=== PATIENT | female | born 1970 | race American Indian/Alaskan Native ===

== ENCOUNTER 2016-06-28 09:31 | Day surgery (SDC) | payer OTHER ==
[2016-06-25 11:37] LABS: Basophils % (Auto) 0.2 % (0.0-1.8); Eosinophils % (Auto) 0.5 % (0.0-4.3); Hematocrit 32.9 % (30.3-42.9); Hemoglobin 10.4 gm/dl (10.1-14.3); Mean Corpuscular HGB Conc 32 % (30-34); Mean Corpuscular Volume 76 fl (79-97); Platelet Count 325 K/mm3 (140-440); Red Blood Count 4.34 M/mm3 (3.65-5.03); Red Cell Distribution Width 17.3 % (13.2-15.2); White Blood Count 9.5 K/mm3 (4.5-11.0)
[2016-06-25 11:38] LABS: Mean Corpuscular Hemoglobin 24 pg (28-32)
--- NOTE | 2016-06-25 11:38 | Anesthesia Consultation ---
Anesthesia Consult and Med Hx Date of service: 06/25/16 - Airway Anesthetic Teeth Evaluation: Good ROM Head & Neck: Adequate Mental/Hyoid Distance: Adequate Mallampati Class: Class I Intubation Access Assessment: Good - Pulmonary Exam CTA: Yes - Cardiac Exam Cardiac Exam: RRR - Pre-Operative Health Status ASA Pre-Surgery Classification: ASA2 Proposed Anesthetic Plan: General - Pulmonary Hx Smoking: Yes (marijuanna daily) Hx Asthma: No - Cardiovascular System Hx Hypertension: Yes (x 10 yrs) - Central Nervous System Hx Seizures: Yes (EEG normal on 06/10/16, pass out, last one on 06/03/16) Hx Psychiatric Problems: No - Endocrine Hx Renal Disease: No Hx Liver Disease: No Hx Non-Insulin Dependent Diabetes: No - Hematic Hx Anemia: Yes - Other Systems Hx Alcohol Use: Yes (occas) Hx Substance Use: Yes (marijuana daily) Hx Cancer: No - Additional Comments Anesthesia Medical History Comments: NAC
[2016-06-25 11:57] LABS: Anion Gap 13 mmol/L; BUN/Creatinine Ratio 13.33; Blood Urea Nitrogen 8 mg/dL (7-17); Calcium 9.2 mg/dL (8.4-10.2); Carbon Dioxide 28 mmol/L (22-30); Chloride 100.5 mmol/L (98-107); Glucose 85 mg/dL (65-100); Sodium 139 mmol/L (137-145)
[2016-06-25 12:32] LABS: Potassium 2.9 mmol/L (3.6-5.0)
--- NOTE | 2016-06-27 16:00 | History and Physical Report ---
History of Present Illness History of present illness: 46 YOBF p[address] Shaq Stone with menometrorhagia. Patient's work up included a sonohysterogram which showed a lesion c/w a submucosal myoma. Patient has failed medical therapy to control her irregular menses and desires definite treatment and preservation of her fertility PATIENT Surgery Was Canceled Due To Hypokalemia. We'll Reschedule Once This Problem Is Resolved Past History Past Medical History: anemia, hypertension, other (s/p blood transfusion 1994) Past Surgical History: , Other (BTL, right arm lipoma removal) Family history: hypertension Medications and Allergies Allergies Allergy/AdvReac Type Severity Reaction Status Date / Time No Known Allergies Allergy Verified 06/24/16 12:22 Home Medications Medication Instructions Recorded Confirmed Last Taken Type Ferrous Sulfate [Ferrous Sulfate] 650 mg PO DAILY 06/24/16 06/28/16 06/27/16 History Olmesartan/Amlodipin/Hcthiazid 1 each PO QDAY 06/24/16 06/28/16 06/28/16 09:16 History [Tribenzor 20-5-12.5 mg] levETIRAcetam [Keppra TAB] 1,000 mg PO DAILY 06/24/16 06/28/16 06/27/16 23:30 History Active Meds: Active Medications Famotidine (Pepcid) 20 mg PO PREOP NR Stop: 06/28/16 23:29 Lactated Ringer's (Lactated Ringers) 1,000 mls @ 100 mls/hr IV DIRECT PRATIK Midazolam HCl (Versed) 2 mg IV PREOP NR Stop: 06/28/16 23:59 Review of Systems Breasts: deferred Cardiovascular: no chest pain, no orthopnea, no palpitations, no rapid/ irregular heart beat Respiratory: no cough, no congestion Gastrointestinal: abdominal pain Genitourinary Female: abnormal vaginal bleeding Menstruation: period heavy, menses variable Exam - Constitutional Vitals: Temp Pulse Resp BP Pulse Ox 98.3 F 76 14 140/86 06/25/16 11:00 06/25/16 11:00 06/25/16 11:00 06/25/16 11:00 General appearance: Present: no acute distress - Neck Neck: Present: supple - Respiratory Respiratory effort: normal - Cardiovascular Rhythm: regular - Extremities Extremities: pulses symmetrical, No edema - Abdominal General gastrointestinal: Present: soft, non-tender Female genitourinary: Present: normal - Rectal Rectal Exam: deferred - Integumentary Integumentary: Present: clear, warm, dry - Musculoskeletal Musculoskeletal: strength equal bilaterally - Psychiatric Psychiatric: appropriate mood/affect, intact judgment & insight - Neurologic Neurologic: moves all extremities Results - Labs CBC & Chem 7: 06/25/16 11:05 06/28/16 09:00 Assessment and Plan - Patient Problems (1) Submucous leiomyoma of uterus Current Visit: Yes Status: Acute Plan to address problem: Discussed risk of surgery including infection, bleeding and risk of perforating her uterus. Questions answered. Patient understands and desires to proceed (2) Anemia Current Visit: Yes Status: Acute Qualifiers: Anemia type: A Iron deficiency anemia type: chronic blood loss Vitamin B12 deficiency anemia type: V Folate deficiency anemia type: F Bone marrow failure anemia type: B Hemolytic anemia type: H Other causes of anemia: O Qualified Code(s): D50.0 - Iron deficiency anemia secondary to blood loss ( chronic) (3) Hypertension Current Visit: Yes Status: Acute Qualifiers: Hypertension type: essential hypertension Qualified Code(s): I10 - Essential (primary) hypertension
[~2016-06-28 09:31] MED LIST: LACTATED RINGERS 1,000 ML IV SCH; NACL BACTERIOSTATIC INFILTRATI ONE; PEPCID PO NR; VERSED IV NR
[2016-06-28 09:58] VITALS: BP 144/99
== END 2016-06-28 09:32 | disposition home or self-care (01) ==
LOC: OR 09:31
PROVIDERS: ATTEND Obstetrics & Gynecology
DX: D25.0 Submucous leiomyoma of uterus (principal); Z53.8 Procedure and treatment not carried out for other reasons; D64.9 Anemia, unspecified; I10 Essential (primary) hypertension; F12.90 Cannabis use, unspecified, uncomplicated; Z98.51 Tubal ligation status; Z98.890 Other specified postprocedural states; Z79.899 Other long term (current) drug therapy; Z72.89 Other problems related to lifestyle; Z82.49 Family history of ischemic heart disease and other diseases of the circulatory system
CPT/HCPCS: 36415; 80048; 84132; 84703; 85025; 86850; 86870; 86900; 86901; 86902; 86922; J7120; J2250

== ENCOUNTER 2016-07-26 13:51 | Emergency (ER) | payer OTHER ==
[2016-07-26] MEDS ORDERED: KEPPRA 1,000 MG/NS 0.75% 100ML 1,000 MG/100 ML BAG IV ONE (14:04)
[2016-07-26 14:21] VITALS: BP 121/75
[2016-07-26] MEDS ORDERED: KEPPRA 1,000 MG in NACL 0.9% 100 ML IV SCH (15:00)
--- NOTE | 2016-07-26 15:01 | Emergency Department Report ---
ED Seizure HPI - General Chief Complaint: Seizure Stated Complaint: SEIZURES Time Seen by Provider: 07/26/16 14:52 Source: patient, family, EMS, RN notes reviewed Mode of arrival: Stretcher Limitations: No Limitations - History of Present Illness Initial Comments: 46-year-old female presents to the emergency department via EMS after 3 witnessed seizures today. Patient has a history of seizure disorder and states she has been compliant with her Keppra. Before today, her last seizure was approximately 2 months ago. Patient states that she has been feeling well over the past several days. Today, family describes 3 generalized, tonic-clonic seizures. There are no other complaints. MD Complaint: seizure -: Gradual, This morning Description of Episode: tonic-clonic movement, post-event confusion Witnessed:: Yes Trauma: No Seizure History: known seizure disorder, compliant with medication Place: home Possible Precipitating Event: none Associated Symptoms: denies other symptoms Treatments Prior to Arrival: none - Related Data Home Medications Medication Instructions Recorded Confirmed Last Taken Ferrous Sulfate [Ferrous Sulfate] 650 mg PO DAILY 06/24/16 07/26/16 06/27/16 Olmesartan/Amlodipin/Hcthiazid 1 each PO QDAY 06/24/16 07/26/16 06/28/16 09:16 [Tribenzor 20-5-12.5 mg] Previous Rx's Medication Instructions Recorded Last Taken Type levETIRAcetam [Keppra TAB] 1,000 mg PO QAM #30 tablet 07/26/16 Unknown Rx levETIRAcetam [Keppra TAB] 500 mg PO QPM #30 tablet 07/26/16 Unknown Rx Allergies Allergy/AdvReac Type Severity Reaction Status Date / Time No Known Allergies Allergy Verified 06/24/16 12:22 ED Review of Systems ROS: Stated complaint: SEIZURES Other details as noted in HPI Comment: All other systems reviewed and negative Neurological: other (seizure) ED Past Medical Hx - Past Medical History Previous Medical History?: Yes Hx Hypertension: Yes (x 10 yrs) Hx Liver Disease: No Hx Renal Disease: No Hx Headaches / Migraines: Yes Hx Seizures: Yes Hx Asthma: No Hx HIV: No Additional medical history: anemia - Surgical History Past Surgical History?: Yes Additional Surgical History: ARM SURGERY. TUBAL ligation - Family History Family history: no significant - Social History Smoking Status: Never Smoker Substance Use Type: Marijuana - Medications Home Medications: Home Medications Medication Instructions Recorded Confirmed Last Taken Type Ferrous Sulfate [Ferrous Sulfate] 650 mg PO DAILY 06/24/16 07/26/16 06/27/16 History Olmesartan/Amlodipin/Hcthiazid 1 each PO QDAY 06/24/16 07/26/16 06/28/16 09:16 History [Tribenzor 20-5-12.5 mg] levETIRAcetam [Keppra TAB] 1,000 mg PO QAM #30 tablet 07/26/16 Unknown Rx levETIRAcetam [Keppra TAB] 500 mg PO QPM #30 tablet 07/26/16 Unknown Rx ED Physical Exam - General Limitations: No Limitations General appearance: alert, in no apparent distress - Head Head exam: Present: atraumatic, normocephalic - Eye Eye exam: Present: normal appearance, PERRL, EOMI - ENT ENT exam: Present: normal exam, normal orophraynx, mucous membranes moist - Neck Neck exam: Present: normal inspection, full ROM. Absent: tenderness - Respiratory Respiratory exam: Present: normal lung sounds bilaterally. Absent: respiratory distress - Cardiovascular Cardiovascular Exam: Present: regular rate, normal rhythm, normal heart sounds - GI/Abdominal GI/Abdominal exam: Present: soft, normal bowel sounds. Absent: distended, tenderness - Extremities Exam Extremities exam: Present: normal inspection, full ROM. Absent: tenderness - Back Exam Back exam: Present: normal inspection, full ROM. Absent: tenderness - Neurological Exam Neurological exam: Present: alert, oriented X3. Absent: motor sensory deficit - Skin Skin exam: Present: warm, dry, intact ED Course Vital Signs 07/26/16 07/26/16 14:15 14:16 Temperature 98.0 F Pulse Rate 87 Respiratory 16 16 Rate Blood Pressure 121/75 [Right] O2 Sat by Pulse 99 99 Oximetry ED Medical Decision Making - Lab Data Result diagrams: 07/26/16 14:37 07/26/16 14:37 - EKG Data -: EKG Interpreted by Me EKG shows normal: sinus rhythm, axis, intervals, QRS complexes, ST-T waves Rate: normal - EKG Data When compared to previous EKG there are: previous EKG unavailable Interpretation: normal EKG - Medical Decision Making Laboratory results reviewed and discussed with the patient and family. Elevated white blood cell count is likely secondary to demarginalization from repeated seizures. Patient has been administered IV Keppra in the emergency department and there has been no further seizure activity. Patient will be discharged home at this time to follow up with her neurologist. I am increasing her Keppra dose from 1000 mg daily to 1500 mg daily. - Differential Diagnosis seizure disorder, noncompliance, occult infection, electrolyte abnormality Critical care attestation.: If time is entered above; I have spent that time in minutes in the direct care of this critically ill patient, excluding procedure time. ED Disposition Clinical Impression: Seizure disorder Disposition: DISCHARGED TO HOME OR SELFCARE Is pt being admited?: No Condition: Stable Instructions: Recurrent Seizures Adult (ED) Prescriptions: levETIRAcetam [Keppra TAB] 500 mg PO QPM #30 tablet levETIRAcetam [Keppra TAB] 1,000 mg PO QAM #30 tablet Referrals: PRIMARY CARE, [Primary Care Provider] - 3-5 Days Time of Disposition: 16:36
[2016-07-26 15:26] LABS: Anion Gap 20 mmol/L; Blood Urea Nitrogen 7 mg/dL (7-17); Calcium 8.9 mg/dL (8.4-10.2); Carbon Dioxide 20 mmol/L (22-30); Chloride 101.8 mmol/L (98-107); Glucose 105 mg/dL (65-100); Potassium 3.5 mmol/L (3.6-5.0); Sodium 138 mmol/L (137-145)
[2016-07-26 15:33] LABS: Hematocrit 29.3 % (30.3-42.9); Hemoglobin 8.9 gm/dl (10.1-14.3); Mean Corpuscular HGB Conc 30 % (30-34); Mean Corpuscular Volume 77 fl (79-97); Platelet Count 377 K/mm3 (140-440); Red Blood Count 3.81 M/mm3 (3.65-5.03); Red Cell Distribution Width 17.3 % (13.2-15.2)
[2016-07-26 15:36] LABS: White Blood Count 20.8 K/mm3 (4.5-11.0)
[2016-07-26 15:37] LABS: Mean Corpuscular Hemoglobin 23 pg (28-32)
[2016-07-26] MEDS ORDERED: TYLENOL ONE (15:45)
[2016-07-26] MEDS ORDERED: TYLENOL PO ONE (15:49)
[2016-07-26 16:08] LABS: Bacteria,Urine 1+ /HPF (Negative); Bilirubin,Urine NEG (Negative); Blood,Urine MOD (Negative); Ketones,Urine NEG (Negative); Leukocyte Esterase,Urine NEG (Negative); Mucus,Urine FEW /HPF; Nitrite,Urine NEG (Negative); Urobilinogen,Urine < 2.0 mg/dL (<2.0)
[2016-07-26 17:11] LABS: Anisocytosis 1+; Basophils % (Manual) 0 % (0.0-1.8); Blastocytes % (Manual) 0 %; Eosinophils % (Manual) 0 % (0.0-4.3); Microcytosis 1+
[2016-07-26 17:12] LABS: Hypochromasia 1+; Ovalocytes Few
[2016-07-26 17:13] LABS: Diff Status Complete; Giant Platelets Few; Platelet Estimate Consistent w Auto; Poikilocytosis Few
== END 2016-07-26 17:20 | disposition home or self-care (01) ==
LOC: ED 13:51
DX: G40.909 Epilepsy, unspecified, not intractable, without status epilepticus (principal); I10 Essential (primary) hypertension; G43.909 Migraine, unspecified, not intractable, without status migrainosus; F12.10 Cannabis abuse, uncomplicated
CPT/HCPCS: 36415; 80048; 81001; 85007; 85025; 93005; 93010; 96365; 99284; J1953

== ENCOUNTER 2016-08-30 23:42 | Emergency (ER) | payer SELFPAY ==
[2016-08-31] MEDS ORDERED: KEPPRA 1,000 MG/NS 0.75% 100ML 1,000 MG/100 ML BAG IV ONE (00:38)
--- NOTE | 2016-08-31 00:41 | Emergency Department Report ---
HPI - General Time Seen by Provider: 08/31/16 00:26 - HPI HPI: This is a 46-year-old -[place] female presents to the emergency department by EMS from home after a friend went to check on her and did not get any response. She found the patient down, with blood to the tongue and mouth. Patient did become more awake and alert and thinks that she had a seizure prior to EMS arrival. She says that this is how she typically feels after a seizure. The patient last had a seizure on July 23 but had 3 seizures on that day and came to be seen at [facility]. The patient has been having some feelings of fever, runny nose and sinus drainage for the past 3 days prior to this event. Her neurologist is Dr. Vieyra but she is looking to find a different one in [facility]. She does not currently have a primary care doctor. She has been compliant with her Keppra 1000 mg daily. No recent travel or sick contacts at home. ED Past Medical Hx - Past Medical History Hx Hypertension: Yes (x 10 yrs) Hx Liver Disease: No Hx Renal Disease: No Hx Headaches / Migraines: Yes Hx Seizures: Yes Hx Asthma: No Hx HIV: No Additional medical history: anemia - Surgical History Additional Surgical History: ARM SURGERY. TUBAL ligation - Social History Smoking Status: Never Smoker Substance Use Type: Marijuana - Medications Home Medications: Home Medications Medication Instructions Recorded Confirmed Last Taken Type Ferrous Sulfate [Ferrous Sulfate] 650 mg PO DAILY 06/24/16 07/26/16 06/27/16 History levETIRAcetam [Keppra TAB] 1,000 mg PO QAM #30 tablet 07/26/16 Unknown Rx levETIRAcetam [Keppra TAB] 500 mg PO QPM #30 tablet 07/26/16 Unknown Rx Olmesartan/Amlodipin/Hcthiazid 1 each PO QDAY #30 tablet 08/31/16 Unknown Rx [Tribenzor 20-5-12.5 mg] Sulfamethoxazole/Trimethoprim 1 each PO BID #14 tablet 08/31/16 Unknown Rx [Bactrim DS TAB] ED Review of Systems ROS: Stated complaint: SEIZURE, NAUSEA AND VOMITING Other details as noted in HPI Comment: All other systems reviewed and negative Constitutional: fever. denies: diaphoresis Eyes: denies: eye pain, eye discharge, vision change ENT: other (tongue and inner lip laceration). denies: ear pain, throat pain Respiratory: denies: cough, shortness of breath, wheezing Cardiovascular: denies: chest pain, palpitations Gastrointestinal: denies: abdominal pain, nausea, diarrhea Genitourinary: denies: urgency, dysuria, discharge Musculoskeletal: denies: back pain, joint swelling, arthralgia Skin: denies: rash, lesions Neurological: other (seizure). denies: headache Physical Exam - Physical Exam Physical Exam: GENERAL: The patient is well-developed well-nourished. HEENT: Normocephalic. Atraumatic. Extraocular motions are intact. Patient has moist mucous membranes. Pupils equal reactive to light bilaterally. No nystagmus. The patient has a small laceration to the left side of the tongue but there is no significant gap. There is also a small laceration to the midline inside of the upper lip but it does not go through to the outside and there is no current bleeding. Otherwise the oropharynx is clear. NECK: Supple. Trachea is midline. CHEST/LUNGS: Clear to auscultation. There is no respiratory distress noted. HEART/CARDIOVASCULAR: Regular. There is no tachycardia. There is no gallop rub or murmur. ABDOMEN: Abdomen is soft, nontender. Patient has normal bowel sounds. There is no abdominal distention. SKIN: Skin is warm and dry. NEURO: The patient is awake, alert, and oriented. The patient is cooperative. The patient has no focal neurologic deficits. The patient has normal speech. Cranial nerves II through XII grossly intact. MUSCULOSKELETAL: There is no tenderness or deformity. There is no limitation range of motion. There is no evidence of acute injury. ED Medical Decision Making - Lab Data Result diagrams: 08/31/16 00:48 08/31/16 00:48 - Radiology Data Radiology results: image reviewed interpreted by me: Chest x-ray did not show any acute process. Heart is normal shape and size. No effusions. No pneumothorax. No signs of pneumonia seen. - Medical Decision Making 46-year-old female presents to the emergency department after having a seizure at home. It was unwitnessed but the patient was found on the ground in a sort of postictal state but then became more awake and alert and says this is her previous seizures have presented. Since being in the emergency Department there has been no further seizure-like activity. She did bite her lip and tongue causing small lacerations but did not want them closed with suture. Patient's labs show some hypokalemia with potassium of 2.9 that was replaced with potassium chloride. She had some signs of hypothyroidism. Otherwise there is no Elevation in blood alcohol level and urine drug screen only positive for marijuana. Since the patient has a history of seizures and only had one seizure recently, no CT head was done at this time. She was reevaluated multiple times over multiple hours has remained stable. She will be placed on some antibiotics for the lacerations to the tongue and lip and was given a refill of her blood pressure medication. She is going to find a new neurologist and [facility] and was given some referrals for primary care. She will return to the ER with any worsening of her symptoms or any acute distress. - Differential Diagnosis epilepsy, substance abuse, hypoglycemia, hypothyroidism Critical Care Time: No Critical care attestation.: If time is entered above; I have spent that time in minutes in the direct care of this critically ill patient, excluding procedure time. ED Disposition Clinical Impression: Seizure, Hypokalemia Laceration of tongue Qualifiers: Encounter type: initial encounter Qualified Code(s): S01.512A - Laceration without foreign body of oral cavity, initial encounter Disposition: DC- TO HOME OR SELFCARE Is pt being admited?: No Condition: Stable Instructions: Hypokalemia (ED), Epilepsy (ED) Additional Instructions: Please follow-up with a primary care physician in the next few days if possible. You should find a different neurologist if you are unhappy with the one that you currently have but it is recommended that he do follow up with a neurologist regarding your seizures. Return to the emergency department with any worsening of your symptoms or any acute distress. I have started you on some antibiotics due to the laceration of the tongue and inside of the lip. Try to stay away from foods that are spicy, extra salty or have small seeds or pieces of food that could get caught in the lacerations. Prescriptions: Olmesartan/Amlodipin/Hcthiazid [Tribenzor 20-5-12.5 mg] 1 each PO QDAY #30 tablet Sulfamethoxazole/Trimethoprim [Bactrim DS TAB] 1 each PO BID #14 tablet Referrals: PRIMARY CARE, [Primary Care Provider] - 3-5 Days JOSE NIETO MD [Staff Physician] - 3-5 Days [facility] [place] [Outside] - 3-5 Days [facility] [Outside] - 3-5 Days [facility] [Outside] - 3-5 Days Time of Disposition: 03:04
[2016-08-31 00:54] LABS: Urine Drugs of Abuse Note Disclamer
[2016-08-31 01:06] LABS: Bilirubin,Urine NEG (Negative); Blood,Urine SM (Negative); Ketones,Urine NEG (Negative); Leukocyte Esterase,Urine TR (Negative); Mucus,Urine FEW /HPF; Nitrite,Urine NEG (Negative); Urobilinogen,Urine < 2.0 mg/dL (<2.0)
[2016-08-31 01:18] LABS: Basophils % (Auto) 0.2 % (0.0-1.8); Hemoglobin 8.9 gm/dl (10.1-14.3); Mean Corpuscular HGB Conc 31 % (30-34); Mean Corpuscular Hemoglobin 22 pg (28-32); Mean Corpuscular Volume 71 fl (79-97); Platelet Count 366 K/mm3 (140-440); Red Blood Count 4.09 M/mm3 (3.65-5.03); Red Cell Distribution Width 18.6 % (13.2-15.2); White Blood Count 17.1 K/mm3 (4.5-11.0)
[2016-08-31 01:28] LABS: Alanine Aminotransferase 16 units/L (7-56); Albumin 4.1 g/dL (3.9-5); Alkaline Phosphatase 65 units/L (35-129); Anion Gap 18 mmol/L; BUN/Creatinine Ratio 11.42; Blood Urea Nitrogen 8 mg/dL (7-17); Carbon Dioxide 27 mmol/L (22-30); Chloride 99.2 mmol/L (98-107); Glucose 97 mg/dL (65-100); Sodium 141 mmol/L (137-145); Total Protein 8.4 g/dL (6.3-8.2)
[2016-08-31 01:46] LABS: Potassium 2.9 mmol/L (3.6-5.0)
[2016-08-31] MEDS ORDERED: K-DUR PO ONE (01:48)
[2016-08-31] MEDS ORDERED: MORPHINE IV ONE (02:07)
[2016-08-31] MEDS ORDERED: MORPHINE ONE (02:08)
[2016-08-31 03:31] VITALS: BP 128/84
--- NOTE | 2016-08-31 10:40 | XRay Report ---
AP CHEST :08/31/16 01:18:00 CLINICAL: Cough. COMPARISON:None. FINDINGS: Normal heart and pulmonary vasculature. Aortic tortuosity. The lungs are normally expanded and clear. The bones and soft tissues are normal. IMPRESSION: No acute cardiopulmonary process.
== END 2016-08-31 03:31 | disposition home or self-care (01) ==
LOC: ED 23:42
DX: S01.512A Laceration without foreign body of oral cavity, initial encounter (principal); R56.9 Unspecified convulsions; E87.6 Hypokalemia; I10 Essential (primary) hypertension; G43.909 Migraine, unspecified, not intractable, without status migrainosus; D64.9 Anemia, unspecified; F12.90 Cannabis use, unspecified, uncomplicated; X58.XXXA Exposure to other specified factors, initial encounter; Y93.9 Activity, unspecified; Y99.9 Unspecified external cause status; Y92.9 Unspecified place or not applicable
CPT/HCPCS: 36415; 71010; 80053; 80307; 81001; 81025; 84443; 84484; 85025; 93005; 93010; 96365; 96375; 99285; G0480; J1953; J2270; 80320

== ENCOUNTER 2016-12-12 17:50 | Emergency (ER) | payer SELFPAY ==
[2016-12-12] MEDS ORDERED: NACL 0.9% 1000 ML 1,000 ML IV ONE (18:12)
[2016-12-12] MEDS ORDERED: MORPHINE IV ONE ×2 (18:12→22:59)
[2016-12-12] MEDS ORDERED: ZOFRAN IV ONE (18:12)
--- NOTE | 2016-12-12 20:31 | Cat Scan Report ---
FINAL REPORT PROCEDURE: CT head without contrast. TECHNIQUE: Computerized tomography of the head was performed without contrast material. HISTORY: Headache. COMPARISON: CT head 01/19/2016. FINDINGS: The ventricles are normal in size. The mera matter and white matter appear normal. There are no mass lesions. There is no intracranial hemorrhage. There are no signs of acute infarction. The calvarium appears intact. The mastoid air cells and visualized paranasal sinuses are clear. IMPRESSION: Normal study.
[2016-12-12 20:41] LABS: Basophils % (Auto) 0.1 % (0.0-1.8); Mean Corpuscular HGB Conc 29 % (30-34); Platelet Count 333 K/mm3 (140-440); Red Blood Count 4.57 M/mm3 (3.65-5.03); Red Cell Distribution Width 19.8 % (13.2-15.2); White Blood Count 16.1 K/mm3 (4.5-11.0)
[2016-12-12 20:50] LABS: Alanine Aminotransferase 18 units/L (7-56); Albumin 3.9 g/dL (3.9-5); Albumin/Globulin Ratio 0.9 %; Alkaline Phosphatase 70 units/L (35-129); Anion Gap 16 mmol/L; BUN/Creatinine Ratio 11.66; Blood Urea Nitrogen 7 mg/dL (7-17); Calcium 8.8 mg/dL (8.4-10.2); Carbon Dioxide 23 mmol/L (22-30); Chloride 101.3 mmol/L (98-107); Glucose 98 mg/dL (65-100); Potassium 3.1 mmol/L (3.6-5.0); Sodium 137 mmol/L (137-145); Total Protein 8.1 g/dL (6.3-8.2)
[2016-12-12 20:57] LABS: Hemoglobin 9.3 gm/dl (10.1-14.3)
[2016-12-12 20:58] LABS: Hematocrit 31.7 % (30.3-42.9); Mean Corpuscular Hemoglobin 20 pg (28-32); Mean Corpuscular Volume 69 fl (79-97)
[2016-12-12] MEDS ORDERED: REGLAN IV ONE (21:19)
[2016-12-12] MEDS ORDERED: BENADRYL IV ONE (21:19)
[2016-12-12] MEDS ORDERED: TORADOL IV ONE (21:19)
--- NOTE | 2016-12-12 22:44 | Emergency Department Report ---
HPI - General Chief Complaint: Seizure Time Seen by Provider: 12/12/16 19:36 - HPI HPI: The patient is a 46-year-old female presents for evaluation of seizure. The patient reports experiencing a seizure while lying at home in bed. She has a history of epilepsy. She also reports on and off moderate in severity, aching in quality headache, for the past one week, exacerbated with head position changes. The patient denies fever, head injury, neck pain, neck stiffness, vision or hearing changes, smell or taste changes, paresthesias, facial drooping , slurred speech, urine or bowel incontinence or retention, or other focal neurological deficit. ED Past Medical Hx - Past Medical History Hx Hypertension: Yes (x 10 yrs) Hx Liver Disease: No Hx Renal Disease: No Hx Headaches / Migraines: Yes Hx Seizures: Yes Hx Asthma: No Hx HIV: No Additional medical history: anemia - Surgical History Additional Surgical History: ARM SURGERY. TUBAL ligation - Social History Smoking Status: Never Smoker Substance Use Type: None - Medications Home Medications: Home Medications Medication Instructions Recorded Confirmed Last Taken Type Ferrous Sulfate [Ferrous Sulfate] 650 mg PO DAILY 06/24/16 07/26/16 06/27/16 History levETIRAcetam [Keppra TAB] 1,000 mg PO QAM #30 tablet 07/26/16 Unknown Rx Olmesartan/Amlodipin/Hcthiazid 1 each PO QDAY #30 tablet 08/31/16 Unknown Rx [Tribenzor 20-5-12.5 mg] Sulfamethoxazole/Trimethoprim 1 each PO BID #14 tablet 08/31/16 Unknown Rx [Bactrim DS TAB] Butalb/Acetaminophen/Caffeine 1 - 2 cap PO Q6HR PRN #20 cap 12/12/16 Unknown Rx [Fioricet 50-300-40 mg CAP] levETIRAcetam [Keppra TAB] 500 mg PO QDAY #30 tablet 12/12/16 Unknown Rx ED Review of Systems ROS: Stated complaint: SEIZURE Other details as noted in HPI Constitutional: denies: fever ENT: denies: throat or neck pain Respiratory: denies: cough, shortness of breath Cardiovascular: denies: chest pain Endocrine: denies unexplained weight loss or gain Gastrointestinal: denies: abdominal pain, nausea Genitourinary: denies: dysuria Musculoskeletal: denies: leg swelling Skin: denies: rash Neurological: reports headache and seizure Hematological/Lymphatic: denies: easy bleeding or easy bruising Psych: denies sadness or hopelessness Physical Exam - Physical Exam Vital Signs: Vital Signs 12/12/16 12/12/16 12/12/16 13:55 14:00 14:15 Temperature Pulse Rate Respiratory Rate Blood Pressure 155/117 155/117 162/105 O2 Sat by Pulse 100 100 99 Oximetry 12/12/16 12/12/16 12/12/16 14:30 14:46 15:00 Temperature Pulse Rate Respiratory Rate Blood Pressure 162/105 167/104 147/97 O2 Sat by Pulse 100 100 100 Oximetry 12/12/16 12/12/16 12/12/16 15:16 15:30 15:46 Temperature Pulse Rate Respiratory Rate Blood Pressure 155/105 159/103 173/103 O2 Sat by Pulse 100 100 91 Oximetry 12/12/16 12/12/16 12/12/16 16:00 16:15 16:31 Temperature Pulse Rate Respiratory Rate Blood Pressure 194/98 138/113 153/108 O2 Sat by Pulse 100 100 100 Oximetry 12/12/16 12/12/16 12/12/16 16:45 17:00 17:16 Temperature Pulse Rate Respiratory Rate Blood Pressure 160/105 160/105 157/104 O2 Sat by Pulse 97 100 100 Oximetry 12/12/16 12/12/16 12/12/16 17:53 17:57 18:03 Temperature 98.1 F Pulse Rate 106 H 105 H Respiratory 18 16 Rate Blood Pressure 164/101 160/105 160/105 O2 Sat by Pulse 98 99 98 Oximetry 12/12/16 12/12/16 12/12/16 18:15 18:30 18:33 Temperature Pulse Rate 105 H 103 H Respiratory 21 15 14 Rate Blood Pressure 138/81 145/97 O2 Sat by Pulse 98 Oximetry 12/12/16 18:45 Temperature Pulse Rate 105 H Respiratory 16 Rate Blood Pressure 147/91 O2 Sat by Pulse 92 Oximetry Physical Exam: General: well-nourished, well-developed, no acute distress Head: Normocephalic, atraumatic Eyes: normal sclera, PERRL, EOM intact ENT: Mucous membranes are pale and dry Neck: No neck stiffness, no cervical adenopathy Respiratory: Breath sounds equal bilaterally, no wheezing, rales, or rhonchi Cardio: S1 and S2 present, no murmurs, rubs, gallops, capillary refill is delayed Abdomen: Normoactive bowel sounds, soft abdomen, no rigidity, no guarding or rebound tenderness Musc: No pitting edema Skin: No rash Neuro: alert oriented x4, normal cognition, speech normal, no facial drooping, no uvula or tongue deviation on protrusion, no deficit with rotation of neck or shoulder shrug, no obvious gross motor deficit in the upper or lower extremities with flexion or extension at the shoulder, elbow, wrist, hip, knee, or ankle bilaterally, no obvious gross sensation deficit to crude touch or 2 pt discrimination, 2+ symmetric reflexes on DTR testing, no coordination deficit with [id number]-[id number] or [id number]-[id number] testing, romberg negative Psych: Normal affect ED Course Vital Signs 12/12/16 12/12/16 12/12/16 13:55 14:00 14:15 Temperature Pulse Rate Respiratory Rate Blood Pressure 155/117 155/117 162/105 O2 Sat by Pulse 100 100 99 Oximetry 12/12/16 12/12/16 12/12/16 14:30 14:46 15:00 Temperature Pulse Rate Respiratory Rate Blood Pressure 162/105 167/104 147/97 O2 Sat by Pulse 100 100 100 Oximetry 12/12/16 12/12/16 12/12/16 15:16 15:30 15:46 Temperature Pulse Rate Respiratory Rate Blood Pressure 155/105 159/103 173/103 O2 Sat by Pulse 100 100 91 Oximetry 12/12/16 12/12/16 12/12/16 16:00 16:15 16:31 Temperature Pulse Rate Respiratory Rate Blood Pressure 194/98 138/113 153/108 O2 Sat by Pulse 100 100 100 Oximetry 12/12/16 12/12/16 12/12/16 16:45 17:00 17:16 Temperature Pulse Rate Respiratory Rate Blood Pressure 160/105 160/105 157/104 O2 Sat by Pulse 97 100 100 Oximetry 12/12/16 12/12/16 12/12/16 17:53 17:57 18:03 Temperature 98.1 F Pulse Rate 106 H 105 H Respiratory 18 16 Rate Blood Pressure 164/101 160/105 160/105 O2 Sat by Pulse 98 99 98 Oximetry 12/12/16 12/12/16 12/12/16 18:15 18:30 18:33 Temperature Pulse Rate 105 H 103 H Respiratory 21 15 14 Rate Blood Pressure 138/81 145/97 O2 Sat by Pulse 98 Oximetry 12/12/16 18:45 Temperature Pulse Rate 105 H Respiratory 16 Rate Blood Pressure 147/91 O2 Sat by Pulse 92 Oximetry ED Medical Decision Making - Lab Data Result diagrams: 12/12/16 20:11 12/12/16 20:11 - Medical Decision Making The patient was seen and examined by myself. The patient is placed on a zoo veterinarian and continuous pulse ox. On initial evaluation, the patient was found to be in no distress with no findings on examination concerning for acute intracranial disease process. CT scan the head is negative for acute intracranial disease process. IV access is established and the patient is given 1 L normal saline fluid bolus for treatment of dehydration, IV Reglan, Benadryl , and IV Toradol for headache. The patient was reevaluated and reported that their symptoms were markedly improved. The patient is stable for discharge with outpatient follow-up. The patient is given follow-up and return instructions. The patient expressed understanding and agreed with the plan. The patient is discharged in stable condition. Critical care attestation.: If time is entered above; I have spent that time in minutes in the direct care of this critically ill patient, excluding procedure time. ED Disposition Clinical Impression: Seizure disorder, Dehydration, Hypertensive urgency, Acute non intractable tension-type headache Disposition: DC-01 TO HOME OR SELFCARE Is pt being admited?: No Does the pt Need Aspirin: No Condition: Stable Instructions: Epilepsy (ED), Acute Headache (ED), Hypertension (ED) Prescriptions: Butalb/Acetaminophen/Caffeine [Fioricet 50-300-40 mg CAP] 1 - 2 cap PO Q6HR PRN #20 cap PRN Reason: Headache levETIRAcetam [Keppra TAB] 500 mg PO QDAY #30 tablet Referrals: PRIMARY CARE, [Primary Care Provider] - 3-5 Days Time of Disposition: 22:41
[2016-12-12 23:03] VITALS: BP 139/91
== END 2016-12-12 22:45 | disposition home or self-care (01) ==
LOC: ED 17:50
DX: G40.909 Epilepsy, unspecified, not intractable, without status epilepticus (principal); E86.0 Dehydration; I16.0 Hypertensive urgency; G44.209 Tension-type headache, unspecified, not intractable; I10 Essential (primary) hypertension; G43.909 Migraine, unspecified, not intractable, without status migrainosus
CPT/HCPCS: 36415; 70450; 80053; 83735; 84703; 85025; 96361; 96374; 96375; 99283; J1200; J1885; J2270; J2405; J2765; J7030

== ENCOUNTER 2017-12-01 14:19 | Emergency (ER) | payer SELFPAY ==
[2017-12-01] MEDS ORDERED: MOTRIN PO ONE (18:13)
--- NOTE | 2017-12-01 19:07 | XRay Report ---
FINAL REPORT PROCEDURE: XR ANKLE 3+V LT TECHNIQUE: Left ankle, three views HISTORY: left ankle pain COMPARISON: No prior studies are available for comparison. FINDINGS: No acute fracture or dislocation. No focal osseous lesions. There is lateral soft tissue swelling. IMPRESSION: Lateral soft tissue swelling. No acute fracture or dislocation
--- NOTE | 2017-12-01 19:59 | Emergency Department Report ---
ED Lower Extremity HPI - General Chief Complaint: Extremity Injury, Lower Stated Complaint: LEFT ANKLE SWOLLEN Time Seen by Provider: 12/01/17 18:06 Source: patient Mode of arrival: Ambulatory Limitations: No Limitations - History of Present Illness Initial Comments: This is a 47-year-old female nontoxic, well nourished in appearance, no acute signs of distress presents to the ED with c/o of left ankle pain 1 week. Patient denies any injuries or trauma. Patient denies any numbness, tingling, fever, chills, nausea, vomiting, chest pain, shortness of breath, headache, stiff neck. Patient denies any joint swelling or joint redness. Patient denies decreased range of motion. Patient stated has decreased gait due to pain. Patient denies any allergies or significant past medical history. MD Complaint: ankle injury -: week(s) (1) Injury: Ankle: Left Severity: mild Severity scale (0 -10): 8 Improves With: immobilization Worsens With: palpation Associated Symptoms: swelling, able to partially bear weight, ambulatory. denies: snap/pop sensation, numbness, tingling, unable to bear weight - Related Data Home Medications Medication Instructions Recorded Confirmed Last Taken Ferrous Sulfate 650 mg PO DAILY 06/24/16 07/26/16 06/27/16 Previous Rx's Medication Instructions Recorded Last Taken Type levETIRAcetam [Keppra TAB] 1,000 mg PO QAM #30 tablet 07/26/16 Unknown Rx Olmesartan/Amlodipin/Hcthiazid 1 each PO QDAY #30 tablet 08/31/16 Unknown Rx [Tribenzor 20-5-12.5 mg] Sulfamethoxazole/Trimethoprim 1 each PO BID #14 tablet 08/31/16 Unknown Rx [Bactrim DS TAB] Butalb/Acetaminophen/Caffeine 1 - 2 cap PO Q6HR PRN #20 cap 12/12/16 Unknown Rx [Fioricet 50-300-40 mg CAP] levETIRAcetam [Keppra TAB] 500 mg PO QDAY #30 tablet 12/12/16 Unknown Rx Ibuprofen [Motrin] 600 mg PO Q8H PRN #30 tablet 12/01/17 Unknown Rx Allergies Allergy/AdvReac Type Severity Reaction Status Date / Time No Known Allergies Allergy Verified 06/24/16 12:22 ED Review of Systems ROS: Stated complaint: LEFT ANKLE SWOLLEN Other details as noted in HPI Constitutional: denies: chills, fever Eyes: denies: eye pain, eye discharge, vision change ENT: denies: ear pain, throat pain Respiratory: denies: cough, shortness of breath, wheezing Cardiovascular: denies: chest pain, palpitations Endocrine: no symptoms reported Gastrointestinal: denies: abdominal pain, nausea, diarrhea Genitourinary: denies: urgency, dysuria, discharge Musculoskeletal: denies: back pain, joint swelling, arthralgia Skin: denies: rash, lesions Neurological: denies: headache, weakness, paresthesias Psychiatric: denies: anxiety, depression Hematological/Lymphatic: denies: easy bleeding, easy bruising ED Past Medical Hx - Past Medical History Hx Hypertension: Yes (x 10 yrs) Hx Liver Disease: No Hx Renal Disease: No Hx Headaches / Migraines: Yes Hx Seizures: Yes Hx Asthma: No Hx HIV: No Additional medical history: anemia - Surgical History Additional Surgical History: ARM SURGERY. TUBAL ligation - Social History Smoking Status: Never Smoker Substance Use Type: Marijuana - Medications Home Medications: Home Medications Medication Instructions Recorded Confirmed Last Taken Type Ferrous Sulfate 650 mg PO DAILY 06/24/16 07/26/16 06/27/16 History levETIRAcetam [Keppra TAB] 1,000 mg PO QAM #30 tablet 07/26/16 Unknown Rx Olmesartan/Amlodipin/Hcthiazid 1 each PO QDAY #30 tablet 08/31/16 Unknown Rx [Tribenzor 20-5-12.5 mg] Sulfamethoxazole/Trimethoprim 1 each PO BID #14 tablet 08/31/16 Unknown Rx [Bactrim DS TAB] Butalb/Acetaminophen/Caffeine 1 - 2 cap PO Q6HR PRN #20 cap 12/12/16 Unknown Rx [Fioricet 50-300-40 mg CAP] levETIRAcetam [Keppra TAB] 500 mg PO QDAY #30 tablet 12/12/16 Unknown Rx Ibuprofen [Motrin] 600 mg PO Q8H PRN #30 tablet 12/01/17 Unknown Rx ED Physical Exam - General Limitations: No Limitations General appearance: alert, in no apparent distress - Head Head exam: Present: atraumatic, normocephalic - Eye Eye exam: Present: normal appearance - ENT ENT exam: Present: mucous membranes moist - Neck Neck exam: Present: normal inspection - Respiratory Respiratory exam: Present: normal lung sounds bilaterally. Absent: respiratory distress - Cardiovascular Cardiovascular Exam: Present: regular rate, normal rhythm. Absent: systolic murmur, diastolic murmur, rubs, gallop - GI/Abdominal GI/Abdominal exam: Present: soft, normal bowel sounds - Extremities Exam Extremities exam: Present: normal inspection, full ROM, tenderness, normal capillary refill. Absent: joint swelling - Expanded Lower Extremity Exam Left Hip exam: Present: normal inspection, full ROM. Absent: tenderness, swelling Upper Leg exam: Present: normal inspection, full ROM. Absent: tenderness, swelling Knee exam: Present: normal inspection, full ROM. Absent: tenderness, swelling Lower Leg exam: Present: normal inspection, full ROM. Absent: tenderness, swelling Ankle exam: Present: normal inspection, full ROM, tenderness, swelling. Absent : abrasion, laceration, ecchymosis, deformity, crepidus, dislocation, erythema, anterior draw sign Foot/Toe exam: Present: normal inspection, full ROM. Absent: tenderness, swelling Neuro vascular tendon exam: Present: no vascular compromise. Absent: pulse deficit, abnormal cap refill, motor deficit, sensory deficit, tendon deficit, extremity cold to touch, pallor, abnormal 2-point discrimination, decreased fine /light touch, foot drop, peroneal nerve deficit, significant pain with passive ROM of distal joint Gait: Positive: observed and limited by pain - Back Exam Back exam: Present: normal inspection, full ROM - Neurological Exam Neurological exam: Present: alert, oriented X3, normal gait - Psychiatric Psychiatric exam: Present: normal affect, normal mood - Skin Skin exam: Present: warm, dry, intact, normal color. Absent: rash ED Course Vital Signs 12/01/17 15:17 Temperature 98.7 F Pulse Rate 99 H Respiratory 18 Rate Blood Pressure 142/92 O2 Sat by Pulse 99 Oximetry - Reevaluation(s) Reevaluation #1: 12/01/17 20:00 Patient is speaking in full sentences with no signs of distress noted. ED Lower Extremity MDM - Medical Decision Making This is a 47-year-old female that presents with left ankle stain. Patient is stable and was examined by me. I referred patient to an orthopedic doctor for further evaluation for possible MRI. X-ray has been obtained and dictated by the radiologist. Patient is notified of the x-ray report with noted by the patient. Patient does have normal gait with no tenderness and no joint swelling. No ecchymosis. no joint redness or swelling. Not warm to touch. No signs of cellulites present. Patient received ankle stirrup for pain comfort. Patient was instructed to RICE therapy. Patient received Motrin for pain. Patient is discharged with Motrin. At time of discharge, the patient does not seem toxic or ill in appearance. No acute signs of distress noted. Patient agrees to discharge treatment plan of care. No further questions noted by the patient. Critical care attestation.: If time is entered above; I have spent that time in minutes in the direct care of this critically ill patient, excluding procedure time. ED Disposition Clinical Impression: Left ankle strain Qualifiers: Encounter type: initial encounter Qualified Code(s): S96.912A - Strain of unspecified muscle and tendon at ankle and foot level, left foot, initial encounter Disposition: TO HOME OR SELFCARE Is pt being admited?: No Does the pt Need Aspirin: No Condition: Stable Instructions: Ankle Stirrup Splint (ED), Ankle Exercises (GEN), RICE Therapy ( ED) Additional Instructions: Follow-up with a orthopedic doctor in 3-5 days or if symptoms worsen and continue return to emergency room as soon as possible. Prescriptions: Ibuprofen [Motrin] 600 mg PO Q8H PRN #30 tablet PRN Reason: Pain Referrals: PRIMARY MD RAFA [Primary Care Provider] - 3-5 Days MADELAINE KATE MD [Staff Physician] - 3-5 Days [facility] [Outside] - 3-5 Days Forms: Work/School Release Form(ED)
[2017-12-01 21:13] VITALS: BP 140/95
== END 2017-12-01 20:35 | disposition home or self-care (01) ==
LOC: ED 14:19
DX: S96.912A Strain of unspecified muscle and tendon at ankle and foot level, left foot, initial encounter (principal); I10 Essential (primary) hypertension; G43.909 Migraine, unspecified, not intractable, without status migrainosus; F12.10 Cannabis abuse, uncomplicated; Z86.2 Personal history of diseases of the blood and blood-forming organs and certain disorders involving the immune mechanism; Z98.51 Tubal ligation status; X58.XXXA Exposure to other specified factors, initial encounter; Y93.89 Activity, other specified; Y99.8 Other external cause status; Y92.89 Other specified places as the place of occurrence of the external cause

== ENCOUNTER 2017-12-25 09:22 | Day surgery (SDC) | payer OTHER ==
[2017-12-24 11:58] LABS: Basophils # (Auto) 0.1 K/mm3 (0.0-0.1); Basophils % (Auto) 0.6 % (0.0-1.8); Eosinophils % (Auto) 0.3 % (0.0-4.3); Hematocrit 33.7 % (30.3-42.9); Hemoglobin 10.5 gm/dl (10.1-14.3); Lymphocytes # (Auto) 2.2 K/mm3 (1.2-5.4); Lymphocytes % (Auto) 15.1 % (13.4-35.0); Mean Corpuscular HGB Conc 31 % (30-34); Mean Corpuscular Volume 75 fl (79-97); Monocytes # (Auto) 0.7 K/mm3 (0.0-0.8); Monocytes % (Auto) 4.9 % (0.0-7.3); Platelet Count 329 K/mm3 (140-440); Red Blood Count 4.52 M/mm3 (3.65-5.03); Red Cell Distribution Width 18.7 % (13.2-15.2)
[2017-12-24 11:59] LABS: Mean Corpuscular Hemoglobin 23 pg (28-32)
--- NOTE | 2017-12-24 12:29 | Anesthesia Consultation ---
Anesthesia Consult and Med Hx Date of service: 12/24/17 - Airway Anesthetic Teeth Evaluation: Good ROM Head & Neck: Adequate Mental/Hyoid Distance: Adequate Mallampati Class: Class I Intubation Access Assessment: Probably Good - Pulmonary Exam CTA: Yes - Cardiac Exam Cardiac Exam: RRR - Pre-Operative Health Status ASA Pre-Surgery Classification: ASA2 Proposed Anesthetic Plan: General - Cardiovascular System Hx Hypertension: Yes (x 12 yrs) - Central Nervous System Hx Neuromuscular Disorder: No (headaches) Hx Seizures: Yes (Last sz was on Labor Day, does not take any meds) Hx Psychiatric Problems: No - Endocrine Hx Non-Insulin Dependent Diabetes: No - Hematic Hx Anemia: Yes - Other Systems Hx Alcohol Use: Yes (occas) Hx Substance Use: Yes (marijuana daily) Hx Cancer: No
--- NOTE | 2017-12-25 06:41 | History and Physical Report ---
History of Present Illness Date of examination: 12/22/17 History of present illness: Patient has been reassessed/reevaluated. H&P has been reviewed. No interval changes. This is a 47 years old female who presents with uterine fibroids. The patient presents with menorrhagia and intermenstrual bleeding, but denies abdominal pain, abdominal pressure, pelvic pain and pelvic pressure. Prior imaging includes: MRI of pelvis and US of pelvis which reveaed a submucosal myoma Patient desires definitive treatment Discussed with patient various medical, surgical and radiological therapies common for treatment including myomectomy hysterectomy and uterine artery embolization Patient desires hysteroscopic myomectomy Vital Signs: Patient Profile: 47 Years Old Female LMP: 11/26/2017 Height: 67 inches (170.18 cm) Weight: 209 pounds BMI: 32.73 Menstrual History: LMP (date): 11/26/2017 LMP - Character: heavy, first two days Menses interval: 28-30 days Menstrual flow: 5-6 days Date of Last Mammogram: 08/01/2017 Date of Last Pap Smear: 11/19/2012 Past History : 3 Term Births: 2 Premature Births: 1 Living Children: 2 Para: 2 Mult. Births: 0 Prev : 1 Prev. attempt? 0 Aborta: 1 Elect. Ab: 0 Spont. Ab: 1 Ectopics: 0 HAND POLISHER History Operations: lipoma rt arm 1993 Tubal Ligation 1993 Abnormal PAP: positive Infection History HIV Risk Eval: no Hx of STD: None Current Allergies (reviewed today): AMOXICILLIN (AMOXICILLIN CAPS) (Critical) Past Medical History: Hypertension anemia vit d deficiency Anemia Blood Transfusion (1994) Past Surgical History: lipoma rt arm 1993 Tubal Ligation 1993 Family History Summary: General Comments - FH: Family History of Hypertension mother mother if a rare type of cancer. she does not know the typr. Social History: Patient is single Smoking History: Patient has never smoked. Risk Factors: Smoked Tobacco Use: Never smoker Smokeless Tobacco Use: Never Drug use: no HIV high-risk behavior: no Alcohol use: no Exercise: yes Seatbelt use: 100 % PAP Smear History: Date of Last PAP Smear: 11/19/2012 Mammogram History: Date of Last Mammogram: 08/01/2017 Review of Systems General Denies fever, chills, sweats, anorexia, fatigue, weakness, malaise, weight loss and sleep disorder. Complains of menorrhagia. Denies vaginal discharge, incontinence, dysuria, hematuria, urinary frequency, amenorrhea, abnormal vaginal bleeding, pelvic pain, genital sores, decreased libido, painful periods, painful sex, urinary urgency, hot flashes, vaginal dryness, vaginal itching and vaginal odor. CV Denies chest pains, palpitations, syncope, dyspnea on exertion, orthopnea, PND and peripheral edema. Resp Denies cough, dyspnea at rest, excessive sputum, hemoptysis, wheezing and pleurisy. GI Denies nausea, vomiting, diarrhea, constipation, change in bowel habits, abdominal pain, melena, hematochezia, jaundice, gas/bloating, indigestion/ heartburn, dysphagia and odynophagia. Breast Denies left breast lump, right breast lump, nipple discharge, bloody discharge from nipple, breast pain, abnormal mammogram and breast enlargement. Psych Denies depression, anxiety, irritability and mood swings. Past History Past Medical History: other (See HPI) Past Surgical History: Other (See HPI) Social history: other (See HPI) Family history: other (See HPI) Medications and Allergies Allergies Allergy/AdvReac Type Severity Reaction Status Date / Time No Known Allergies Allergy Verified 12/24/17 06:50 Home Medications Medication Instructions Recorded Confirmed Last Taken Type Ferrous Sulfate 650 mg PO DAILY 06/24/16 12/25/17 12/24/17 History Losartan [Cozaar] 25 mg PO QDAY 12/24/17 12/25/17 12/25/17 08:30 History amLODIPine [Norvasc] 10 mg PO DAILY 12/24/17 12/25/17 12/24/17 History Exam - Physical Exam Narrative exam: HEENT: normocephalic, no lesions or deformities Skin no lesiosn Chest: respiratory effort normal, clear to auscultation CV: regular, normal S1-S2, no murmur, no rub, no gallop Abdomen: normal bowel sounds, soft, nontender, no HSM Well healed pfannenstiel scar Musculoskeletal: grossly normal ROM in joints, no joint tenderness or muscle weakness Neuro: no gross anomalities Extremities: no edema HAND POLISHER Exams Vulva/Vagina: normal appearance, no discharge, lesions. No evidence of cystocele or rectocele. Cervix: normal appearance, no lesions, no discharge Uterus: first-degree retroversion Adnexae: no masses or tenderness Rectovaginal: exam defered - Constitutional Vitals: Temp Pulse Resp BP Pulse Ox 98.2 F 80 18 138/90 12/24/17 11:40 12/24/17 11:40 12/24/17 11:40 12/24/17 11:40 Results - Labs CBC & Chem 7: 12/24/17 11:45 Labs: Abnormal lab results 12/24/17 Range/Units 11:45 WBC 14.5 H (4.5-11.0) K/mm3 MCV 75 L (79-97) fl MCH 23 L (28-32) pg RDW 18.7 H (13.2-15.2) % Seg Neutrophils % 79.1 H (40.0-70.0) % Seg Neutrophils # 11.5 H (1.8-7.7) K/mm3 Assessment and Plan - Patient Problems (1) Menorrhagia Current Visit: No Status: Acute Qualifiers: Menorrahagia type: with regular cycle Qualified Code(s): N92.0 - Excessive and frequent menstruation with regular cycle Plan to address problem: Secondary to #2 (2) Submucous leiomyoma of uterus Current Visit: No Status: Acute Plan to address problem: Discussed risk of surgery including infection, bleeding and risk of perforating her uterus. Questions answered. Patient understands and desires to proceed (3) Hypertension Current Visit: No Status: Acute Qualifiers: Hypertension type: essential hypertension Qualified Code(s): I10 - Essential (primary) hypertension
[2017-12-25] MEDS ORDERED: NACL BACTERIOSTATIC INFILTRATI ONE (10:31)
[2017-12-25] MEDS ORDERED: TORADOL IV PRN (10:34)
[2017-12-25] MEDS ORDERED: DEMEROL IV PRN (10:34)
[2017-12-25] MEDS ORDERED: ZOFRAN IV PRN (10:34)
[2017-12-25] MEDS ORDERED: DILAUDID IV PRN (10:34)
[2017-12-25] MEDS ORDERED: VERSED IV NR (11:00)
[2017-12-25] MEDS ORDERED: LACTATED RINGERS 1,000 ML IV SCH (11:00)
[2017-12-25] MEDS ORDERED: XYLOCAINE MPF 2% ONE (12:02)
[2017-12-25] MEDS ORDERED: DIPRIVAN 10 MG/ML IV ONE ×2 (12:02→13:28)
[2017-12-25] MEDS ORDERED: SUBLIMAZE ONE (12:02)
[2017-12-25] MEDS ORDERED: NACL 0.9% IR ONE (13:45)
[2017-12-25] MEDS ORDERED: DECADRON ONE (13:49)
[2017-12-25] MEDS ORDERED: ROBINUL ONE (13:50)
[2017-12-25] MEDS ORDERED: ZOFRAN ONE (13:50)
--- NOTE | 2017-12-25 14:02 | Operative Report ---
Operative Report Operative Report: Date of procedure: 12/25/2017 Pre-operative diagnosis: Submucosal myoma Post-operative diagnosis: Same Procedure name(s): Operative hysteroscopy with MyoSure Surgeon: Rene Ortiz MD Frame Runner: [] Anesthesia: Gen. EBL: Minimal Complications: None Findings: Patient with an anterior uterine wall mass with both ostia were seen also thickened endometrium seen Specimen(s): Uterine mass Procedure: Patient was brought into the operating room, where general anesthesia was induced without any difficulty. Patient was placed in dorsal lithotomy position. Prep and drape in the usual sterile manner. Timeout procedure was performed. The patient's bladder was emptied with a red rubber catheter. Speculum was placed in the vagina. Tenaculum was placed at 12:00 on the cervix. The cervical os was dilated to a 19 [place] diameter. The hysteroscope was placed and the findings noted above. The MyoSure device was primed. The device was placed through the cervical os. The mass was then removed using the MyoSure. The mass was completely removed with no evidence of puncture on the uterine wall. All instruments were then removed. The patient was awakened in the operating room and accompanied to recovery room in good condition.
[2017-12-25] MEDS ORDERED: TORADOL ONE (14:03)
--- NOTE | 2017-12-25 14:05 | Short Stay Summary ---
Short Stay Documentation Date of service: 12/25/17 - History H&P: dictated Past Medical History: other (See HPI) Past Surgical History: Other (See HPI) Social history: other (See HPI) - Allergies and Medications Current Medications: Allergies No Known Allergies Allergy (Verified 12/24/17 06:50) Home Medications Medication Instructions Recorded Confirmed Last Taken Type Ferrous Sulfate 650 mg PO DAILY 06/24/16 12/25/17 12/24/17 History Losartan [Cozaar] 25 mg PO QDAY 12/24/17 12/25/17 12/25/17 08:30 History amLODIPine [Norvasc] 10 mg PO DAILY 12/24/17 12/25/17 12/24/17 History Doxycycline [Vibramycin CAP] 100 mg PO Q12HR #14 capsule 12/25/17 Unknown Rx Ibuprofen [Motrin 600 MG tab] 800 mg PO Q6H PRN #30 tablet 12/25/17 Unknown Rx oxyCODONE /ACETAMINOPHEN [Percocet 1 - 2 tab PO Q4H PRN #15 tablet 12/25/17 Unknown Rx 5/325 mg] Active Medications Hydromorphone HCl (Dilaudid) 0.5 mg IV Q10MIN PRN PRN Reason: Pain , Severe (7-10) Lactated Ringer's (Lactated Ringers) 1,000 mls @ 100 mls/hr IV DIRECT PRATIK Last Admin: 12/25/17 11:03 Dose: 100 mls/hr Ketorolac Tromethamine (Toradol) 30 mg IV ONCE PRN PRN Reason: Pain, Moderate (4-6) Meperidine HCl (Demerol) 25 mg IV ONCE PRN PRN Reason: Shivering Midazolam HCl (Versed) 2 mg IV PREOP NR Stop: 12/25/17 23:59 Last Admin: 12/25/17 13:15 Dose: 2 mg Ondansetron HCl (Zofran) 4 mg IV ONCE PRN PRN Reason: Nausea And Vomiting - Brief post op/procedure progress note Date of procedure: 12/25/17 (see dictated operative note) - Hospital course Hospital course: Patient was admitted underwent the above him procedure without any complications. Patient will be discharged with follow-up in office in 1-2 weeks for postop check. - Disposition Condition at discharge: Good Disposition: DC-01 TO HOME OR SELFCARE - Discharge Diagnoses (1) Menorrhagia Status: Acute Qualifiers: Menorrahagia type: with regular cycle Qualified Code(s): N92.0 - Excessive and frequent menstruation with regular cycle (2) Submucous leiomyoma of uterus Status: Acute (3) Hypertension Status: Acute Qualifiers: Hypertension type: essential hypertension Qualified Code(s): I10 - Essential (primary) hypertension Short Stay Discharge Plan Activity: advance as tolerated Diet: regular Follow up with: PRIMARY CARE, [Primary Care Provider] - 7 Days Prescriptions: Ibuprofen [Motrin 600 MG tab] 800 mg PO Q6H PRN #30 tablet PRN Reason: Pain oxyCODONE /ACETAMINOPHEN [Percocet 5/325 mg] 1 - 2 tab PO Q4H PRN #15 tablet PRN Reason: Pain, Moderate Doxycycline [Vibramycin CAP] 100 mg PO Q12HR #14 capsule
--- NOTE | 2017-12-25 17:02 | Post Anesthesia Evaluation ---
- Post Anesthesia Evaluation Patient Participated: Yes Airway Patent: Yes Stable Respiratory Function: Yes Nausea/Vomiting: No Temp > 96.8F: Yes Pain Manageable: Yes Adequeate Hydration: Yes Anesthesia Complications: No
[2017-12-25 17:55] VITALS: BP 130/78
== END 2017-12-25 15:51 | disposition home or self-care (01) ==
LOC: OR 09:22
PROVIDERS: ATTEND Obstetrics & Gynecology
DX: D25.0 Submucous leiomyoma of uterus (principal); I10 Essential (primary) hypertension; D72.829 Elevated white blood cell count, unspecified; G40.909 Epilepsy, unspecified, not intractable, without status epilepticus; Z98.891 History of uterine scar from previous surgery; Z72.89 Other problems related to lifestyle; Z86.2 Personal history of diseases of the blood and blood-forming organs and certain disorders involving the immune mechanism; Z79.899 Other long term (current) drug therapy; Z79.01 Long term (current) use of anticoagulants; Z98.890 Other specified postprocedural states; Z98.51 Tubal ligation status
CPT/HCPCS: 36415; 58561; 84703; 85025; 88305; A4217; C1782; J1100; J1885; J2250; J2405; J2704; J3010; J7120

== ENCOUNTER 2017-12-25 17:28 | Observation (INO) | payer OTHER ==
--- NOTE | 2017-12-25 18:25 | Emergency Department Report ---
ED Chest Pain HPI - General Stated Complaint: VIK Time Seen by Provider: 12/25/17 18:21 Source: patient Mode of arrival: Ambulatory Limitations: No Limitations - History of Present Illness Initial Comments: Patient is a 47-year-old female transferred from with complaints of chest pain, shortness of breath and hyperventilation and anxiety. Patient was brought in by EMS for evaluation. Patient states most of her symptoms have resolved. Patient states she had surgery today for fibroids removal and was discharged at 3 PM this afternoon. Patient states her symptoms started approximately 2 hours ago and resolved after an about half hour.\ Patient states she's never had an anxiety attack or panic attack but after symptoms started she began to become very nervous MD Complaint: chest pain -: Sudden Onset: during rest Pain Location: substernal, left chest Severity: severe Severity scale (0 -10): 10 Quality: tightness, heaviness, sharp Consistency: now resolved Improves With: rest Worsens With: exertion, inspiration, movement re: nausea, vomting, diaphoresis, dyspnea, sense of impending doom Other Symptoms: denies: cough, fever, syncope, rash, acid taste in mouth, leg swelling, palpitations, burping Treatments Prior to Arrival: none Aspirin use within the Past 7 Days: (0) No - Related Data On Oral Contraceptives: No Home Medications Medication Instructions Recorded Confirmed Last Taken Ferrous Sulfate 650 mg PO DAILY 06/24/16 12/25/17 12/24/17 Losartan [Cozaar] 25 mg PO QDAY 12/24/17 12/25/17 12/25/17 08:30 amLODIPine [Norvasc] 10 mg PO DAILY 12/24/17 12/25/17 12/24/17 Previous Rx's Medication Instructions Recorded Last Taken Type Doxycycline [Vibramycin CAP] 100 mg PO Q12HR #14 capsule 12/25/17 Unknown Rx Ibuprofen [Motrin 600 MG tab] 800 mg PO Q6H PRN #30 tablet 12/25/17 Unknown Rx oxyCODONE /ACETAMINOPHEN [Percocet 1 - 2 tab PO Q4H PRN #15 tablet 12/25/17 Unknown Rx 5/325 mg] Allergies Allergy/AdvReac Type Severity Reaction Status Date / Time No Known Allergies Allergy Verified 12/24/17 06:50 Heart Score - HEART Score History: Moderately suspicious EKG: Normal Age: 45-65 Risk factors: No known risk factors Troponin: < normal limit HEART Score: 2 ED Review of Systems ROS: Stated complaint: VIK Other details as noted in HPI Constitutional: denies: chills, fever Eyes: denies: eye pain, eye discharge, vision change ENT: denies: ear pain, throat pain Respiratory: shortness of breath. denies: cough, wheezing Cardiovascular: chest pain, palpitations Endocrine: no symptoms reported Gastrointestinal: abdominal pain. denies: nausea, diarrhea Genitourinary: denies: urgency, dysuria, discharge Musculoskeletal: denies: back pain, joint swelling, arthralgia Skin: denies: rash, lesions Neurological: denies: headache, weakness, paresthesias Psychiatric: denies: anxiety, depression Hematological/Lymphatic: denies: easy bleeding, easy bruising ED Past Medical Hx - Past Medical History Previous Medical History?: Yes Hx Hypertension: Yes (x 10 yrs) Hx Liver Disease: No Hx Renal Disease: No Hx Headaches / Migraines: Yes Hx Seizures: Yes Hx Asthma: No Hx HIV: No Additional medical history: anemia - Surgical History Past Surgical History?: Yes Additional Surgical History: ARM SURGERY. TUBAL ligation - Family History Family history: no significant - Social History Smoking Status: Never Smoker Substance Use Type: None - Medications Home Medications: Home Medications Medication Instructions Recorded Confirmed Last Taken Type Ferrous Sulfate 650 mg PO DAILY 06/24/16 12/25/17 12/24/17 History Losartan [Cozaar] 25 mg PO QDAY 12/24/17 12/25/17 12/25/17 08:30 History amLODIPine [Norvasc] 10 mg PO DAILY 12/24/17 12/25/17 12/24/17 History Doxycycline [Vibramycin CAP] 100 mg PO Q12HR #14 capsule 12/25/17 Unknown Rx Ibuprofen [Motrin 600 MG tab] 800 mg PO Q6H PRN #30 tablet 12/25/17 Unknown Rx oxyCODONE /ACETAMINOPHEN [Percocet 1 - 2 tab PO Q4H PRN #15 tablet 12/25/17 Unknown Rx 5/325 mg] ED Physical Exam - General Limitations: No Limitations General appearance: alert, in no apparent distress - Head Head exam: Present: atraumatic, normocephalic - Eye Eye exam: Present: normal appearance - ENT ENT exam: Present: mucous membranes moist - Neck Neck exam: Present: normal inspection - Respiratory Respiratory exam: Present: normal lung sounds bilaterally. Absent: respiratory distress - Cardiovascular Cardiovascular Exam: Present: regular rate, normal rhythm. Absent: systolic murmur, diastolic murmur, rubs, gallop - GI/Abdominal GI/Abdominal exam: Present: soft, tenderness (mild generalized tenderness), normal bowel sounds - Extremities Exam Extremities exam: Present: normal inspection - Back Exam Back exam: Present: normal inspection - Neurological Exam Neurological exam: Present: alert, oriented X3 - Psychiatric Psychiatric exam: Present: normal affect, normal mood - Skin Skin exam: Present: warm, dry, intact, normal color. Absent: rash ED Course Vital Signs 12/25/17 12/25/17 12/25/17 18:18 19:11 19:15 Temperature 98.6 F Pulse Rate 90 86 Respiratory 22 Rate Blood Pressure 161/101 150/96 O2 Sat by Pulse 100 99 99 Oximetry 12/25/17 12/25/17 12/25/17 19:30 19:59 21:01 Temperature Pulse Rate 82 81 Respiratory 14 20 13 Rate Blood Pressure 147/88 145/94 O2 Sat by Pulse 99 100 100 Oximetry 12/25/17 12/25/17 12/25/17 21:15 21:30 21:45 Temperature Pulse Rate 90 82 83 Respiratory 20 18 19 Rate Blood Pressure 153/101 137/92 139/94 O2 Sat by Pulse 99 97 Oximetry 12/25/17 12/25/17 12/25/17 22:00 22:15 22:30 Temperature Pulse Rate 90 83 94 H Respiratory 17 21 25 H Rate Blood Pressure 139/94 144/94 146/85 O2 Sat by Pulse 99 Oximetry 12/25/17 12/25/17 12/25/17 22:45 23:00 23:15 Temperature Pulse Rate 84 96 H Respiratory 20 15 Rate Blood Pressure 131/85 145/84 145/84 O2 Sat by Pulse 100 100 Oximetry 12/25/17 12/25/17 12/25/17 23:36 23:46 23:56 Temperature Pulse Rate Respiratory Rate Blood Pressure 145/84 145/84 145/84 O2 Sat by Pulse 87 90 87 Oximetry 12/26/17 12/26/17 00:00 00:15 Temperature Pulse Rate Respiratory Rate Blood Pressure 145/84 150/95 O2 Sat by Pulse 88 98 Oximetry - Reevaluation(s) Reevaluation #1: Discussed all results with patient. Patient's initial cardiac workup was negative. CT is pending 12/25/17 20:34 \ Reevaluation #2: Discussed all results with patient. CTA is negative for PE. Patient will be admitted to the hospital service. Patient agrees with plan of care and admission. Vital signs are stable throughout time in ER. 12/25/17 22:40 - Consultations Consultation #1: Hospitalist consulted for admission. Hospitalist to admit and assume care. 12/25/17 22:41 ANTONI score - Antoni Score Age > 65: (0) No Aspirin use within the Past 7 Days: (0) No 3 or more CAD Risk Factors: (0) No 2 or more Angina events in past 24 hrs: (0) No Known CAD with more than 50% Stenosis: (0) No Elevated Cardiac Markers: (0) No ST Deviation Greater than 0.5mm: (0) No ANTONI Score: 0 ED Medical Decision Making - Lab Data Result diagrams: 12/25/17 18:29 12/25/17 18:29 - EKG Data -: EKG Interpreted by Ny EKG shows normal: sinus rhythm, axis, intervals, QRS complexes, ST-T waves Rate: normal - Radiology Data Radiology results: report reviewed FINAL REPORT PROCEDURE: CT ANGIO CHEST TECHNIQUE: Computerized axial tomographic angiography of the chest and pulmonary arteries was performed after the IV injection of iodinated nonionic contrast. The image data was postprocessed using maximum intensity projection (MIP) and 2-dimensional multiplanar reformatted (MPR) techniques. The examination is specifically tailored to the evaluation of the pulmonary arteries per clinical request. HISTORY: Short of breath 786.09, chest pain 786.50, sob. cp COMPARISON: No prior studies are available for comparison. FINDINGS: Heart and pericardium: Normal. Thoracic aorta: There is no thoracic aortic aneurysm or dissection.. Pulmonary vasculature: Normal. No pulmonary emboli. Lymph nodes: No enlarged thoracic lymph nodes. Lungs: Lungs are expanded. There are no infiltrates, effusions or pneumothoraces.. Pleural space: No effusion, thickening, or pneumothorax. Musculoskeletal structures: No significant abnormality. Upper abdominal structures: There is fatty infiltration of the liver.. IMPRESSION: There is no pulmonary embolism.. Transcribed By: CO Dictated By: SAJAN JASON MD Electronically Authenticated By: SAJAN JASON MD Signed Date/Time: 12/25/17 2228 FINAL REPORT PROCEDURE: CT ABDOMEN PELVIS WO CON TECHNIQUE: Computerized axial tomography of the abdomen and pelvis was performed without intravenous contrast. This study is performed without intravascular contrast material and its sensitivity for abdominal and pelvic pathology, including neoplasms, inflammation, abscess, free fluid, thrombosis, arterial dissection and infarction, is reduced compared with a contrast enhanced study. HISTORY: abd pain. recent surgery COMPARISON: No prior studies are available for comparison. FINDINGS: Visualized lower thorax: No significant abnormality. Liver: The liver is enlarged and fatty. There is an 18 millimeter density in the right lobe of the liver which could be focal fatty sparing, hemangioma or other mass. Contrast-enhanced images may be helpful.. Spleen: Normal size and attenuation. Gallbladder and biliary system: Normal. Pancreas: Normal. Adrenals: Normal. Kidneys: There is contrast enhancement of the kidneys with contrast in the collecting systems and ureters. There are small kidney cysts.. GI tract: There is no bowel obstruction, colitis or enteritis. The appendix is normal. Lymph nodes and mesentery: Normal. Vasculature: Normal. Bladder: Normal. Reproductive organs: Normal uterus and ovaries.. The cervix is enlarged in contains hypodense areas which could be nabothian cysts. Peritoneum: There is no ascites or free air, abscess or adenopathy.. Musculoskeletal structures: No significant abnormality. Other: None. IMPRESSION: The liver is enlarged and fatty. There is an 18 millimeter density in the right lobe of the liver which could be focal fatty sparing, hemangioma or other mass. Contrast-enhanced images may be helpful.. There is contrast enhancement of the kidneys with contrast in the collecting systems and ureters. There are small kidney cysts.. There is no bowel obstruction, colitis or enteritis. The appendix is normal. Normal uterus and ovaries.. The cervix is enlarged in contains hypodense areas which could be nabothian cysts. There is no ascites or free air, abscess or adenopathy.. . Transcribed By: CO Dictated By: SAJAN JASON MD Electronically Authenticated By: SAJAN JASON MD Signed Date/Time: 12/26/17 0005 - Medical Decision Making She is a 47-year-old female presents emergency room with chest pain shortness of breath. Patient recently had a surgery earlier the same day. Patient was admitted to the hospital service for further evaluation treatment. His initial cardiac workup was negative. CTA is negative. Cardiac enzymes negative.. On labs patient has significantly high WBC and due to the fact the patient is postop and has some abdominal pain and elevated white count a CT of the abdomen was done CT abdomen is negative for acute process. - Differential Diagnosis cp. sob. acs. pe. anx. panic. Critical care attestation.: If time is entered above; I have spent that time in minutes in the direct care of this critically ill patient, excluding procedure time. ED Disposition Clinical Impression: SOB (shortness of breath) Chest pain Qualifiers: Chest pain type: unspecified Qualified Code(s): R07.9 - Chest pain, unspecified Hypertension Qualifiers: Hypertension type: essential hypertension Qualified Code(s): I10 - Essential ( primary) hypertension Abdominal pain Qualifiers: Abdominal location: generalized Qualified Code(s): R10.84 - Generalized abdominal pain Elevated white blood cell count, unspecified Qualifiers: Leukocytosis type: unspecified Qualified Code(s): D72.829 - Elevated white blood cell count, unspecified Disposition: DC-09 OP ADMIT IP TO THIS HOSP Is pt being admited?: Yes Does the pt Need Aspirin: No Condition: Serious Time of Disposition: 22:56
[2017-12-25 18:59] LABS: Hemoglobin 11.8 gm/dl (10.1-14.3); Mean Corpuscular HGB Conc 32 % (30-34); Mean Corpuscular Volume 74 fl (79-97); Platelet Count 307 K/mm3 (140-440); Red Cell Distribution Width 18.7 % (13.2-15.2)
[2017-12-25 19:05] LABS: Mean Corpuscular Hemoglobin 24 pg (28-32)
[2017-12-25 19:30] LABS: Basophils % (Manual) 0 % (0.0-1.8); Eosinophils % (Manual) 0 % (0.0-4.3); Total Cells Counted 100
[2017-12-25 19:31] LABS: Anisocytosis 1+; Hypochromasia 1+; Large Platelets 1+; Platelet Estimate Consistent w Auto; Poikilocytosis 1+
[2017-12-25 20:12] LABS: Alanine Aminotransferase 27 units/L (7-56); Albumin 4.3 g/dL (3.9-5); BUN/Creatinine Ratio 12; Blood Urea Nitrogen 7 mg/dL (7-17); Calcium 9.5 mg/dL (8.4-10.2); Hemolysis Index 10
[2017-12-25] MEDS ORDERED: DILAUDID IV ONE (22:23)
--- NOTE | 2017-12-25 22:28 | Cat Scan Report ---
FINAL REPORT PROCEDURE: CT ANGIO CHEST TECHNIQUE: Computerized axial tomographic angiography of the chest and pulmonary arteries was performed after the IV injection of iodinated nonionic contrast. The image data was postprocessed using maximum intensity projection (MIP) and 2-dimensional multiplanar reformatted (MPR) techniques. The examination is specifically tailored to the evaluation of the pulmonary arteries per clinical request. HISTORY: Short of breath 786.09, chest pain 786.50, sob. cp COMPARISON: No prior studies are available for comparison. FINDINGS: Heart and pericardium: Normal. Thoracic aorta: There is no thoracic aortic aneurysm or dissection.. Pulmonary vasculature: Normal. No pulmonary emboli. Lymph nodes: No enlarged thoracic lymph nodes. Lungs: Lungs are expanded. There are no infiltrates, effusions or pneumothoraces.. Pleural space: No effusion, thickening, or pneumothorax. Musculoskeletal structures: No significant abnormality. Upper abdominal structures: There is fatty infiltration of the liver.. IMPRESSION: There is no pulmonary embolism..
--- NOTE | 2017-12-25 23:16 | History and Physical Report ---
History of Present Illness Date of examination: 12/25/17 Date of admission: 12/25/17 Chief complaint: Chest pain, SOB History of present illness: Pt is a 47-year-old female with PMHx of HTN, Epilepsy and iron deficiency anemia who was brought to the ER by EMS from home with complaints of chest pain , SOB, hyperventilation and anxiety 1 hr prior to coming to the ER. Pt states that she underwent an elective outpatient fibroid removal surgery today, she states that about 1 hr after getting home, she was getting in the car with her sister when she developed a severe, sharp, chest pain. Pt states that the pain was sudden, associated with SOB, hyperventilation and tingling feeling in her hands and feet. Pt states that she was worried because she didn't know what cause the pain, her sister called EMS and she was brought to the ER for evaluation. Patient states that the pain resolved before she gets to the ER, she denies similar chest pain or family history of heart disease, denies heart disease, denies anxiety, denies diaphoresis, denies palpitation, denies recent illness, denies fever, denies chills, denies nausea/vomiting. In the ER, a CT angiogram was done which was negative for PE, her EKG was negative and first CE was negative, pt is admitted for further evaluation and treatment. Past History Past Medical History: anemia, hypertension, other (Epilepsy) Past Surgical History: Other (fibroid removal sx) Family history: no significant family history Medications and Allergies Allergies Allergy/AdvReac Type Severity Reaction Status Date / Time No Known Allergies Allergy Verified 12/24/17 06:50 Home Medications Medication Instructions Recorded Confirmed Last Taken Type Ferrous Sulfate 650 mg PO DAILY 06/24/16 12/25/17 12/24/17 History Losartan [Cozaar] 25 mg PO QDAY 12/24/17 12/25/17 12/25/17 08:30 History amLODIPine [Norvasc] 10 mg PO DAILY 12/24/17 12/25/17 12/24/17 History Doxycycline [Vibramycin CAP] 100 mg PO Q12HR #14 capsule 12/25/17 Unknown Rx Ibuprofen [Motrin 600 MG tab] 800 mg PO Q6H PRN #30 tablet 12/25/17 Unknown Rx oxyCODONE /ACETAMINOPHEN [Percocet 1 - 2 tab PO Q4H PRN #15 tablet 12/25/17 Unknown Rx 5/325 mg] Review of Systems Cardiovascular: chest pain, shortness of breath Respiratory: shortness of breath, other (hyperventilation) Gastrointestinal: other (pelvic discomfort due to surgery) Exam - Constitutional Vitals: Temp Pulse Resp BP Pulse Ox 98.6 F 86 20 150/96 100 12/25/17 18:18 12/25/17 19:15 12/25/17 19:59 12/25/17 19:15 12/25/17 19:59 General appearance: Present: no acute distress - EENT Eyes: Present: EOM intact ENT: hearing intact - Neck Neck: Present: normal ROM - Respiratory Respiratory effort: normal Respiratory: bilateral: CTA - Cardiovascular Rhythm: regular - Extremities Extremities: No edema, Full ROM Peripheral Pulses: within normal limits - Abdominal General gastrointestinal: Present: tender, other (Lower pelvic tenderness) - Rectal Rectal Exam: deferred - Integumentary Integumentary: Present: warm, dry - Musculoskeletal Musculoskeletal: strength equal bilaterally - Psychiatric Psychiatric: appropriate mood/affect - Neurologic Neurologic: moves all extremities Results - Labs CBC & Chem 7: 12/25/17 18:29 12/25/17 18:29 Labs: Laboratory Last Values WBC 19.6 K/mm3 (4.5-11.0) H 12/25/17 18:29 RBC 5.00 M/mm3 (3.65-5.03) 12/25/17 18:29 Hgb 11.8 gm/dl (10.1-14.3) 12/25/17 18:29 Hct 37.0 % (30.3-42.9) 12/25/17 18: MCV 74 fl (79-97) L 12/25/17 18:29 MCH 24 pg (28-32) L 12/25/17 18:29 MCHC 32 % (30-34) 12/25/17 18:29 RDW 18.7 % (13.2-15.2) H 12/25/17 18:29 Plt Count 307 K/mm3 (140-440) 12/25/17 18:29 Add Manual Diff Complete 12/25/17 18:29 Total Counted 100 12/25/17 18:29 Seg Neutrophils % Reed Cleaner 12/25/17 18:29 Seg Neuts % (Manual) 92.0 % (40.0-70.0) H 12/25/17 18:29 Band Neutrophils % 0 % 12/25/17 18:29 Lymphocytes % (Manual) 6.0 % (13.4-35.0) L 12/25/17 18:29 Reactive Lymphs % (Man) 0 % 12/25/17 18:29 Monocytes % (Manual) 2.0 % (0.0-7.3) 12/25/17 18:29 Eosinophils % (Manual) 0 % (0.0-4.3) 12/25/17 18:29 Basophils % (Manual) 0 % (0.0-1.8) 12/25/17 18:29 Metamyelocytes % 0 % 12/25/17 18:29 Myelocytes % 0 % 12/25/17 18:29 Promyelocytes % 0 % 12/25/17 18:29 Blast Cells % 0 % 12/25/17 18:29 Nucleated RBC % Not Reportable 12/25/17 18:29 Seg Neutrophils # Man 18.0 K/mm3 (1.8-7.7) H 12/25/17 18:29 Band Neutrophils # 0.0 K/mm3 12/25/17 18:29 Lymphocytes # (Manual) 1.2 K/mm3 (1.2-5.4) 12/25/17 18:29 Abs React Lymphs (Man) 0.0 K/mm3 12/25/17 18:29 Monocytes # (Manual) 0.4 K/mm3 (0.0-0.8) 12/25/17 18:29 Eosinophils # (Manual) 0.0 K/mm3 (0.0-0.4) 12/25/17 18:29 Basophils # (Manual) 0.0 K/mm3 (0.0-0.1) 12/25/17 18:29 Metamyelocytes # 0.0 K/mm3 12/25/17 18:29 Myelocytes # 0.0 K/mm3 12/25/17 18:29 Promyelocytes # 0.0 K/mm3 12/25/17 18:29 Blast Cells # 0.0 K/mm3 12/25/17 18:29 WBC Morphology Not Reportable 12/25/17 18:29 Hypersegmented Neuts Not Reportable 12/25/17 18:29 Hyposegmented Neuts Not Reportable 12/25/17 18:29 Hypogranular Neuts Not Reportable 12/25/17 18:29 Smudge Cells Not Reportable 12/25/17 18:29 Toxic Granulation Not Reportable 12/25/17 18:29 Toxic Vacuolation Not Reportable 12/25/17 18:29 Dohle Bodies Not Reportable 12/25/17 18:29 Pelger-Huet Anomaly Not Reportable 12/25/17 18:29 [place] Rods Not Reportable 12/25/17 18:29 Platelet Estimate Consistent w auto 12/25/17 18:29 Clumped Platelets Not Reportable 12/25/17 18:29 Plt Clumps, EDTA Not Reportable 12/25/17 18:29 Large Platelets 1+ 12/25/17 18:29 Giant Platelets Not Reportable 12/25/17 18:29 Platelet Satelliting Not Reportable 12/25/17 18:29 Plt Morphology Comment Not Reportable 12/25/17 18:29 RBC Morphology Not Reportable 12/25/17 18:29 Dimorphic RBCs Not Reportable 12/25/17 18:29 Polychromasia Not Reportable 12/25/17 18:29 Hypochromasia 1+ 12/25/17 18:29 Poikilocytosis 1+ 12/25/17 18:29 Anisocytosis 1+ 12/25/17 18:29 Microcytosis Not Reportable 12/25/17 18:29 Macrocytosis Not Reportable 12/25/17 18:29 Spherocytes Not Reportable 12/25/17 18:29 Pappenheimer Bodies Not Reportable 12/25/17 18:29 Sickle Cells Not Reportable 12/25/17 18:29 Target Cells Not Reportable 12/25/17 18:29 Tear Drop Cells Not Reportable 12/25/17 18:29 Ovalocytes Not Reportable 12/25/17 18:29 Helmet Cells Not Reportable 12/25/17 18:29 [place] Bodies Not Reportable 12/25/17 18:29 [place] Rings Not Reportable 12/25/17 18:29 Sivan Cells Not Reportable 12/25/17 18:29 Bite Cells Not Reportable 12/25/17 18:29 Crenated Cell Not Reportable 12/25/17 18:29 Elliptocytes Not Reportable 12/25/17 18:29 Acanthocytes (Spur) Not Reportable 12/25/17 18:29 Rouleaux Not Reportable 12/25/17 18: Hemoglobin C Crystals Not Reportable 12/25/17 18: Schistocytes Not Reportable 12/25/17 18:29 Malaria parasites Not Reportable 12/25/17 18: Dereck Bodies Not Reportable 12/25/17 18: Hem Pathologist Commnt No 12/25/17 18: D-Dimer 260.96 ng/mlDDU (0-234) H 12/25/17 18:29 Sodium 139 mmol/L (137-145) 12/25/17 18: Potassium 3.3 mmol/L (3.6-5.0) L 12/25/17: Chloride 100.9 mmol/L (98-107) 12/25/17 18: Carbon Dioxide 25 mmol/L (22-30) 12/25/17 18: Anion Gap 16 mmol/L 12/25/17 18: BUN 7 mg/dL (7-17) 12/25/17 18: Creatinine 0.6 mg/dL (0.7-1.2) L 12/25/17 18: Estimated GFR > 60 ml/min 12/25/17 18: BUN/Creatinine Ratio 12 % 12/25/17 18: Glucose 113 mg/dL (65-100) H 12/25/17: Calcium 9.5 mg/dL (8.4-10.2) 12/25/17 18: Total Bilirubin 0.50 mg/dL (0.1-1.2) 12/25/17 18: AST 14 units/L (5-40) 12/25/17 18: ALT 27 units/L (7-56) 12/25/17 18: Alkaline Phosphatase 105 units/L (35-129) 12/25/17 18: Troponin T < 0.010 ng/mL (0.00-0.029) 12/25/17 18: Total Protein 9.0 g/dL (6.3-8.2) H 12/25/17 18: Albumin 4.3 g/dL (3.9-5) 12/25/17 18:29 Albumin/Globulin Ratio 0.9 % 12/25/17 18:29 HCG, Qual Negative (Negative) 12/25/17 18:29 Assessment and Plan Assessment and plan: 1. S/P surgical removal of fibroid (POD# 0) 2. Atypical Chest pain R/O cardiac etiology 3. Anxiety (new onset, likely due to fear) 4. Leukocytosis (likely due to demargination from surgical procedure) 5. Hypokalemia 6. Iron deficiency anemia (H&H stable) 7. Fatty liver infiltrates 8. Hypertension (BP stable) 9. Epilepsy (refuse to take home dose keppra because of drowzyness) Plan: Admit to [facility] for chest pain CE q6hr x 2 more Nitro SL PRN for chest pain Repeat EKG in am Monitor VS for BP and post-op fever Replace potassium Recheck CBC/BMP in am Lexican stress test in am Resume home meds/PRN hydrolyzing for increase BP Pt counselled about taking medication for epilepsy Further plan per hospital course Anticipate DC in am if ST negative Advance Directives: Yes VTE prophylaxis?: Mechanical Plan of care discussed with patient/family: Yes
[2017-12-25] MEDS ORDERED: MORPHINE IV PRN (23:18)
[2017-12-25] MEDS ORDERED: MILK OF MAGNESIA PO PRN (23:18)
[2017-12-25] MEDS ORDERED: ZOFRAN IV PRN (23:18)
[2017-12-25] MEDS ORDERED: SENOKOT PO PRN (23:18)
[2017-12-25] MEDS ORDERED: SODIUM CHLORIDE FLUSH SYRINGE 10 ML IV PRN (23:29)
[2017-12-25] MEDS ORDERED: MOTRIN PO PRN (23:47)
--- NOTE | 2017-12-26 00:06 | Cat Scan Report ---
FINAL REPORT PROCEDURE: CT ABDOMEN PELVIS WO CON TECHNIQUE: Computerized axial tomography of the abdomen and pelvis was performed without intravenous contrast. This study is performed without intravascular contrast material and its sensitivity for abdominal and pelvic pathology, including neoplasms, inflammation, abscess, free fluid, thrombosis, arterial dissection and infarction, is reduced compared with a contrast enhanced study. HISTORY: abd pain. recent surgery COMPARISON: No prior studies are available for comparison. FINDINGS: Visualized lower thorax: No significant abnormality. Liver: The liver is enlarged and fatty. There is an 18 millimeter density in the right lobe of the liver which could be focal fatty sparing, hemangioma or other mass. Contrast-enhanced images may be helpful.. Spleen: Normal size and attenuation. Gallbladder and biliary system: Normal. Pancreas: Normal. Adrenals: Normal. Kidneys: There is contrast enhancement of the kidneys with contrast in the collecting systems and ureters. There are small kidney cysts.. GI tract: There is no bowel obstruction, colitis or enteritis. The appendix is normal. Lymph nodes and mesentery: Normal. Vasculature: Normal. Bladder: Normal. Reproductive organs: Normal uterus and ovaries.. The cervix is enlarged in contains hypodense areas which could be nabothian cysts. Peritoneum: There is no ascites or free air, abscess or adenopathy.. Musculoskeletal structures: No significant abnormality. Other: None. IMPRESSION: The liver is enlarged and fatty. There is an 18 millimeter density in the right lobe of the liver which could be focal fatty sparing, hemangioma or other mass. Contrast-enhanced images may be helpful.. There is contrast enhancement of the kidneys with contrast in the collecting systems and ureters. There are small kidney cysts.. There is no bowel obstruction, colitis or enteritis. The appendix is normal. Normal uterus and ovaries.. The cervix is enlarged in contains hypodense areas which could be nabothian cysts. There is no ascites or free air, abscess or adenopathy.. .
[2017-12-26] MEDS: VIBRAMYCIN PO SCH ×2 (00:24→11:41)
[2017-12-26] MEDS: TYLENOL PO PRN ×2 (00:58→14:44)
[2017-12-26] MEDS ORDERED: NITROSTAT SL PRN (02:02)
[2017-12-26] MEDS: NITRO-BID 2% TP SCH ×4 (02:10→13:13)
[2017-12-26 02:45] LABS: Chol/HDL Ratio 4.19 %
[2017-12-26 06:28] LABS: Creatine Kinase MB 1.3 ng/mL (0.0-4.0)
[2017-12-26] MEDS ORDERED: NORVASC PO SCH (10:00)
[2017-12-26] MEDS ORDERED: SODIUM CHLORIDE FLUSH SYRINGE 10 ML IV SCH (10:00)
[2017-12-26] MEDS ORDERED: COZAAR PO SCH (10:00)
[2017-12-26] MEDS ORDERED: FEOSOL PO SCH (10:00)
[2017-12-26] MEDS: ASPIRIN PO SCH ×2 (11:41→11:44)
--- NOTE | 2017-12-26 14:39 | Discharge Summary ---
Providers - Providers Date of Admission: 12/25/17 23:18 Date of discharge: 12/26/17 Attending physician: SOPHIA ELLIS 12/25/17 Consult to Cardiac Rehabilitation [CONS] Routine Reason For Exam: Phase I Primary care physician: RUBINA CRAIG MD Hospitalization Condition: Serious Hospital course: Discharge diagnosis: 1. S/P surgical removal of fibroid (POD# 1) 2. Atypical Chest pain ruled out cardiac etiology, likely from GRD 3. Anxiety (new onset, likely due to fear) 4. Leukocytosis (likely due to demargination from surgical procedure) 5. Hypokalemia, replaced 6. Iron deficiency anemia (H&H stable) 7. Fatty liver infiltrates 8. Hypertension (BP stable) 9. Epilepsy on keppra Disposition: - TO HOME OR SELFCARE Time spent for discharge: 32 minutes Core Measure Documentation - Palliative Care Palliative Care/ Comfort Measures: Not Applicable - Core Measures Any of the following diagnoses?: none Exam - Constitutional Vitals: Temp Pulse Resp BP Pulse Ox 98.1 F 83 18 147/102 100 12/26/17 11:27 12/26/17 11:27 12/26/17 11:27 12/26/17 11:27 12/26/17 11:27 General appearance: Present: no acute distress, well-nourished - EENT Eyes: Present: PERRL ENT: hearing intact, clear oral mucosa - Neck Neck: Present: supple, normal ROM - Respiratory Respiratory effort: normal Respiratory: bilateral: CTA - Cardiovascular Heart Sounds: Present: S1 & S2. Absent: rub, click - Extremities Extremities: pulses symmetrical, No edema Peripheral Pulses: within normal limits - Abdominal General gastrointestinal: Present: soft, non-tender, non-distended, normal bowel sounds - Integumentary Integumentary: Present: clear, warm, dry - Musculoskeletal Musculoskeletal: gait normal, strength equal bilaterally - Psychiatric Psychiatric: appropriate mood/affect, intact judgment & insight - Neurologic Neurologic: CNII-XII intact, moves all extremities Plan Activity: advance as tolerated Weight Bearing Status: Non-Weight Bearing Diet: low fat Additional Instructions: f/u with Dr Ortiz on 01/01/18 Follow up with: PRIMARY CARE, [Primary Care Provider] - 3-5 Days Prescriptions: Pantoprazole [Protonix TAB] 20 mg PO QDAY #30 tablet.
[2017-12-26 16:51] VITALS: BP 182/110
== END 2017-12-26 17:10 | disposition home or self-care (01) ==
LOC: ED 17:28 → 4A 23:18 → INTOOBSV 23:18
PROVIDERS: ADMIT Internal Medicine; ATTEND Internal Medicine
DX: R07.89 Other chest pain (principal); R06.02 Shortness of breath; I10 Essential (primary) hypertension; R10.84 Generalized abdominal pain; D72.829 Elevated white blood cell count, unspecified; F41.9 Anxiety disorder, unspecified; E87.6 Hypokalemia; D50.9 Iron deficiency anemia, unspecified; K76.0 Fatty (change of) liver, not elsewhere classified; G40.909 Epilepsy, unspecified, not intractable, without status epilepticus; D64.9 Anemia, unspecified; G43.909 Migraine, unspecified, not intractable, without status migrainosus
CPT/HCPCS: 36415; 71275; 74176; 78452; 80053; 80061; 82140; 82550; 82553; 84484; 84703; 85007; 85025; 85379; 93005; 93010; 93017; 96374; 99285; A9502; G0378; J1170; J2270; Q9967; 96375

== ENCOUNTER 2020-12-29 19:35 | Emergency (ER) | payer MEDICAID ==
[2020-12-29] MEDS ORDERED: levETIRAcetam 1000 MG/NS 0.75% 1,000 MG/100 ML BAG IV ONE (20:04)
[2020-12-29 20:28] LABS: Basophils % (Auto) 0.1 % (0.0-1.8); Eosinophils % (Auto) 0.1 % (0.0-4.3); Hematocrit 37.6 % (30.3-42.9); Hemoglobin 12.1 gm/dl (10.1-14.3); Lymphocytes # (Auto) 1.6 K/mm3 (1.2-5.4); Lymphocytes % (Auto) 8.3 % (13.4-35.0); Mean Corpuscular HGB Conc 32 % (30-34); Mean Corpuscular Volume 84 fl (79-97); Monocytes # (Auto) 0.9 K/mm3 (0.0-0.8); Monocytes % (Auto) 4.9 % (0.0-7.3); Platelet Count 418 K/mm3 (140-440); Red Blood Count 4.48 M/mm3 (3.65-5.03); Red Cell Distribution Width 17.3 % (13.2-15.2)
[2020-12-29 20:41] LABS: BUN/Creatinine Ratio 11; Blood Urea Nitrogen 11 mg/dL (7-17); Calcium 9.4 mg/dL (8.4-10.2); Hemolysis Index 4
[2020-12-29] MEDS ORDERED: POTASSIUM CHLORIDE ER 20 MEQ TAB PO ONE (21:15)
[2020-12-29] MEDS ORDERED: POTASSIUM CHLORIDE 10 MEQ 10 MEQ/100 ML BAG IV ONE (21:15)
[2020-12-29] MEDS ORDERED: SODIUM CHLORIDE 0.9% 1000 ML 1,000 ML IV ONE ×2 (21:17→23:54)
--- NOTE | 2020-12-29 22:52 | Emergency Department Report ---
ED Seizure HPI - General Chief Complaint: Seizure Stated Complaint: SEIZURE Time Seen by Provider: 12/29/20 19:57 Source: EMS Mode of arrival: Stretcher Limitations: Altered Mental Status - History of Present Illness Initial Comments: Patient 50-year-old F Bulgarian female with past medical history of seizure disorder and hypertension who is presenting status post 3 seizures today. Patient was postictal. She received 5 mg of Versed IM prior to arrival which did stop the seizure activity. Patient it is very tired and fatigued at the during the initial interaction however she states that she has been compliant with her seizure medications. Patient takes Keppra. Denies any nausea vomiting diarrhea cough cold congestion fevers or chills. - Related Data Home Medications Medication Instructions Recorded Confirmed Last Taken Ferrous Sulfate 650 mg PO DAILY 06/24/16 12/26/17 12/24/17 Losartan [Cozaar] 25 mg PO QDAY 12/24/17 12/26/17 12/25/17 08:30 amLODIPine 10 mg PO DAILY 12/24/17 12/26/17 12/24/17 Previous Rx's Medication Instructions Recorded Last Taken Type DOXYCYCLINE Hyclate [Vibramycin 100 mg PO Q12HR #14 capsule 12/25/17 Unknown Rx CAP] oxyCODONE /ACETAMINOPHEN [Percocet 1 - 2 tab PO Q4H PRN #15 tablet 12/25/17 Unknown Rx 5/325 mg] Pantoprazole [Protonix TAB] 20 mg PO QDAY #30 tablet. 12/26/17 Unknown Rx Allergies Allergy/AdvReac Type Severity Reaction Status Date / Time No Known Allergies Allergy Verified 12/24/17 06:50 ED Review of Systems ROS: Stated complaint: SEIZURE Other details as noted in HPI Comment: All other systems reviewed and negative ED Past Medical Hx - Past Medical History Hx Hypertension: Yes (x 10 yrs) Hx Liver Disease: No Hx Renal Disease: No Hx Headaches / Migraines: Yes Hx Seizures: Yes Hx Asthma: No Hx HIV: No Additional medical history: anemia - Surgical History Additional Surgical History: ARM SURGERY. TUBAL ligation - Social History Smoking Status: Unknown if ever smoked - Medications Home Medications: Home Medications Medication Instructions Recorded Confirmed Last Taken Type Ferrous Sulfate 650 mg PO DAILY 06/24/16 12/26/17 12/24/17 History Losartan [Cozaar] 25 mg PO QDAY 12/24/17 12/26/1712/25/18 08:30 History amLODIPine 10 mg PO DAILY 12/24/17 12/26/17 12/24/17 History DOXYCYCLINE Hyclate [Vibramycin 100 mg PO Q12HR #14 capsule 12/25/17 12/26/17 Unknown Rx CAP] oxyCODONE /ACETAMINOPHEN [Percocet 1 - 2 tab PO Q4H PRN #15 tablet 12/25/17 12/26/17 Unknown Rx 5/325 mg] Pantoprazole [Protonix TAB] 20 mg PO QDAY #30 tablet. 12/26/17 Unknown Rx ED Physical Exam - General Limitations: Altered Mental Status General appearance: alert, in no apparent distress, postictal - Head Head exam: Present: atraumatic, normocephalic - Eye Eye exam: Present: normal appearance. Absent: PERRL, EOMI - ENT ENT exam: Present: mucous membranes moist - Neck Neck exam: Present: normal inspection - Respiratory Respiratory exam: Present: normal lung sounds bilaterally. Absent: respiratory distress, wheezes, rales, rhonchi - Cardiovascular Cardiovascular Exam: Present: regular rate, normal rhythm, normal heart sounds. Absent: systolic murmur, diastolic murmur, rubs, gallop - GI/Abdominal GI/Abdominal exam: Present: soft, normal bowel sounds. Absent: tenderness, rebound - Extremities Exam Extremities exam: Present: normal inspection - Back Exam Back exam: Present: normal inspection - Neurological Exam Neurological exam: Present: alert, oriented X3 - Psychiatric Psychiatric exam: Present: normal affect, normal mood - Skin Skin exam: Present: warm, dry, intact, normal color. Absent: rash ED Course Vital Signs 12/29/20 12/29/20 12/29/20 19:57 20:00 20:16 Pulse Rate 97 H 95 H 92 H Respiratory 21 22 23 Rate Blood Pressure 103/60 103/62 O2 Sat by Pulse 94 95 95 Oximetry 12/29/20 12/29/20 12/29/20 20:30 20:46 21:00 Pulse Rate 85 82 80 Respiratory 20 20 19 Rate Blood Pressure 97/57 95/57 98/59 O2 Sat by Pulse 94 95 98 Oximetry 12/29/20 12/29/20 12/29/20 21:16 21:30 21:46 Pulse Rate 85 75 Respiratory 21 19 12 Rate Blood Pressure 92/57 106/67 117/83 O2 Sat by Pulse 97 97 98 Oximetry ED Medical Decision Making - Lab Data Result diagrams: 12/29/20 20:07 12/29/20 20:07 Labs 12/29/20 12/29/20 20:07 20:07 WBC 18.8 H RBC 4.48 Hgb 12.1 Hct 37.6 MCV 84 MCH 27 L MCHC 32 RDW 17.3 H Plt Count 418 Lymph % (Auto) 8.3 L [place] % (Auto) 4.9 Eos % (Auto) 0.1 Baso % (Auto) 0.1 Lymph # (Auto) 1.6 [place] # (Auto) 0.9 H Eos # (Auto) 0.0 Baso # (Auto) 0.0 Seg Neutrophils % 86.6 H Seg Neutrophils # 16.3 H Sodium 136 L Potassium 2.8 L* Chloride 99.1 Carbon Dioxide 13 L Anion Gap 27 BUN 11 Creatinine 1.0 Estimated GFR > 60 BUN/Creatinine Ratio 11 Glucose 147 H Calcium 9.4 - Medical Decision Making Patient is a 50-year-old F Bulgarian female presenting status post several seizures. Seizure activity was treated with Versed prior to arrival. Given a loading dose of Keppra here in emergency department. Laboratory studies showed decreased potassium. This was supplemented. Patient stable for discharge Critical care attestation.: If time is entered above; I have spent that time in minutes in the direct care of this critically ill patient, excluding procedure time. ED Disposition Clinical Impression: Breakthrough seizure, Hypokalemia, Mild dehydration Disposition: 01 HOME / SELF CARE / HOMELESS Is pt being admited?: No Does the pt Need Aspirin: No Condition: Stable Instructions: Epilepsy, [id number], Potassium Content of Foods, Dehydration, Adult, [id number], Hypokalemia Additional Instructions: Please follow-up with your primary care physician Time of Disposition: 22:51
[2020-12-30 00:34] VITALS: BP 107/66
[2020-12-30] MEDS ORDERED: KETOROLAC 30 MG/1 ML INJ IV ONE (02:52)
--- NOTE | 2020-12-30 05:56 | Cat Scan Report ---
CT HEAD WITHOUT CONTRAST INDICATION / CLINICAL INFORMATION: dizziness. TECHNIQUE: All CT scans at this location are performed using CT dose reduction for ALARA by means of automated e xposure control. COMPARISON: Head CT 12/12/2016 FINDINGS: HEMORRHAGE: None. EXTRA-AXIAL SPACES: Normal in size and morphology for the patient's age. VENTRICULAR SYSTEM: Normal in size and morphology for the patient's age. CEREBRAL PARENCHYMA: No significant abnormality. No acute territorial infarct. MIDLINE SHIFT OR HERNIATION: None. CEREBELLUM / BRAINSTEM: No significant abnormality. ORBITS: Normal as visualized. SOFT TISSUES of HEAD: No significant abnormality. CALVARIUM: No significant abnormality. PARANASAL SINUSES / MASTOID AIR CELLS: Mucous retention cyst right maxillary sinus ADDITIONAL FINDINGS: None. IMPRESSION: 1. No acute intracranial abnormality. Signer Name: Ky Villegas MD Signed: 12/30/2020 5:52 AM Workstation Name: [id number]
== END 2020-12-30 08:19 | disposition home or self-care (01) ==
LOC: ED 19:35
DX: R56.9 Unspecified convulsions (principal); E86.0 Dehydration; E87.6 Hypokalemia; I10 Essential (primary) hypertension; G43.909 Migraine, unspecified, not intractable, without status migrainosus
CPT/HCPCS: 36415; 70450; 80048; 85025; 96361; 96374; 96375; 99284; J1885; J1953; J3480; J7030